=== PATIENT | female | born 1930 | race Caucasian/White ===

== ENCOUNTER 2016-08-03 19:20 | Emergency (ER) | payer MEDICARE, MEDICAID ==
[2016-08-03 19:20] VITALS: BMI 32.9
[2016-08-03 19:27] VITALS: BP 124/68; PULSE 50; RESP 16; TEMP 97.6; O2SAT 98
--- NOTE | 2016-08-03 19:44 | ED PDOC ---
HPI: Psych/Substance Abuse Time Seen by Provider: 08/03/16 19:32 Chief Complaint (Nursing): Weakness/Neurological Deficit Chief Complaint (Provider): Crying/Refusal to Eat History Per: Patient, Family (daughter) History/Exam Limitations: clinical condition (patient has history of Alzheimer' s Dementia) Onset/Duration Of Symptoms: Days (x1 week) Current Symptoms Are (Timing): Still Present Suicide/Self Injury Attempted (Context): None Involuntary Hold By: None Additional Complaint(s): Renée Snell is an 86 year old female, with a past medical history inclusive of CAD, HTN, hypercholesterolemia, depression and Alzheimer's Dementia, who presents to the ED on 08/03/16, via EMS and accompanied by her daughter, for a psychiatric evaluation. Per daughter, patient has been crying excessively x1 week, stating that she wants to go back to her home country. Patient has also been unable to sleep as well as refusing to eat, prompting ED visit. Upon interview, patient is complaining of some non-localizable diffuse body pain, though she denies headache, chest pain or shortness of breath. History as reported by patient may be unreliable secondary to her baseline mental status. PMD: Colin Holt Past Medical History Reviewed: Historical Data, Nursing Documentation, Vital Signs Vital Signs: Last Vital Signs Temp 97.6 F 08/03/16 19:24 Pulse 50 L 08/03/16 19:24 Resp 16 08/03/16 19:24 BP 124/68 08/03/16 19:24 Pulse Ox 98 08/03/16 19:24 - Medical History PMH: Alzheimer's Disease, Arthritis, CAD, Dementia, Depression, HTN, Hypercholesterolemia, Hypothyroidism (thyroidectomy), Paranoia Denies: Diabetes, Emphysema, Gastritis, Hepatitis, HIV, Chronic Kidney Disease, Seizures, Sexually Transmitted Disease, TIA - Surgical History Surgical History: Cholecystectomy Other surgeries: thyroidectomy - Family History Family History: States: Unknown Family Hx - Living Arrangements Living Arrangements: With Family - Home Medications Home Medications: Ambulatory Orders Medication Instructions Recorded Aspirin [Aspirin Chewable] 81 mg PO DAILY #0 ctb 06/11/15 Atorvastatin [Lipitor] 10 mg PO DAILY #0 tab 06/11/15 Calcium Carbonate/Vitamin D3 1 tab PO DAILY #0 tablet 06/11/15 [Calcium 600-Vit D3 200 Tablet] Ergocalciferol (Vitamin D2) 50,000 unit PO SUN #0 capsule 06/11/15 [Vitamin D2] Esomeprazole Magnesium [Nexium] 40 mg PO DAILY #0 chelly. 06/11/15 FLUoxetine [Prozac] 10 mg PO DAILY #0 cap 06/11/15 Fenofibrate 200 mg PO DAILY #0 06/11/15 Levothyroxine [Synthroid] 125 mcg PO DAILY@0630 #0 tab 06/11/15 Memantine HCl [Namenda Xr] 28 mg PO DAILY #30 cer 06/11/15 Zolpidem [Ambien] 10 mg PO HS #0 tab 06/11/15 Ciprofloxacin [Cipro] 500 mg PO BID 7 Days 08/03/16 - Allergies Allergies/Adverse Reactions: Allergies Allergy/AdvReac Type Severity Reaction Status Date / Time No Known Allergies Allergy Verified 08/03/16 19:24 Review of Systems ROS Statement: Except As Marked, All Systems Reviewed And Found Negative Constitutional: Positive for: Other (diffuse, un-localizable body pain) Psych: Positive for: Depression (crying excessively, unable to sleep, refusing to eat) Physical Exam - Reviewed Nursing Documentation Reviewed: Yes Vital Signs Reviewed: Yes - Physical Exam Appears: Positive for: Non-toxic, No Acute Distress Head Exam: Positive for: ATRAUMATIC, NORMOCEPHALIC Skin: Positive for: Normal Color, Warm, Dry Eye Exam: Positive for: Normal appearance, PERRL ENT: Positive for: Normal ENT Inspection. Negative for: Pharyngeal Erythema, Tonsillar Exudate, Tonsillar Swelling Neck: Positive for: Normal, Painless ROM, Supple Cardiovascular/Chest: Positive for: Regular Rate, Rhythm. Negative for: Murmur Respiratory: Positive for: Normal Breath Sounds. Negative for: Respiratory Distress Gastrointestinal/Abdominal: Positive for: Normal Exam, Soft. Negative for: Tenderness Back: Positive for: Normal Inspection Neurologic/Psych: Positive for: Alert, entry level paralegal II-XII (intact, no pronator drift), Oriented (x1 (to self), baseline per daughter), Motor/Sensory Deficits (4/5 x4 extremities but all (=) in motor/sensation). Negative for: Aphasia, Facial Droop - Laboratory Results Result Diagrams: 08/03/16 20:00 08/03/16 20:00 - ECG ECG: Positive for: Interpreted By Me, Viewed By Me ECG Rhythm: Positive for: Sinus Bradycardia O2 Sat by Pulse Oximetry: 98 (RA) Pulse Ox Interpretation: Normal Medical Decision Making Medical Decision Makin:32 Initial Impression: depressive state vs electrolyte imbalance vs UTI Initial Plan: * EKG * CXR * Labs * Troponin I * PTT * PT * Urinalysis * IV NS 1000ml at 100mls/hr * Reevaluation EKG shows sinus bradycardia with nonspecific T-wave abnormalities and a low QRS voltage, unchanged from prior. Patient has a history of sinus bradycardia secondary to possible hypothyroidism. 22:25 Patent has been evaluated by Crisis and does not meet criterion for admission. She is psychiatrically stable for discharge home with a diagnosis of Depression as per Dr. Davis (Psychiatrist environment friendly landscape designer). Outpatient followup instructions given by Nutrition Partner. Pending Urinalysis. Scribe Attestation: Documented by Dionne Flynn, acting as a scribe for Francisco Kimbrough MD. Provider Scribe Attestation: All medical record entries made by the Scribe were at my direction and personally dictated by me. I have reviewed the chart and agree that the record accurately reflects my personal performance of the history, physical exam, medical decision making, and the department course for this patient. I have also personally directed, reviewed, and agree with the discharge instructions and disposition. Disposition - Clinical Impression Clinical Impression: Depression, UTI (urinary tract infection) - Disposition Referrals: Colin Holt MD [Staff Provider] - Disposition: Routine/Home Disposition Time: 23:09 Condition: STABLE Prescriptions: Ciprofloxacin [Cipro] 500 mg PO BID 7 Days Instructions: Urinary Tract Infection in Women (DC), Depression (ED) Print Language: UPPER SORBIAN
[2016-08-03] MEDS ORDERED: Sodium Chloride 0.9% 1,000 ML IV SCH (19:45)
[2016-08-03 20:08] LABS: BASO % 0.5 % (0.0-2.0); EOS # 0.1 K/uL (0.0-0.7); EOS % 2.2 % (0.0-4.0); HEMATOCRIT 36.6 % (34.0-47.0); LYMPH # 2.1 K/uL (1.0-4.3); LYMPH % 42.4 % (20.0-40.0); MEAN CELL VOLUME 89.2 fl (81.0-99.0); MEAN CORPUSCULAR HEMOGLOBIN 28.7 pg (27.0-31.0); MEAN CORPUSCULAR HGB CONC 32.1 g/dL (33.0-37.0); MEAN PLATELET VOLUME 9.7 fl (7.2-11.7); MONO # 0.3 K/uL (0.0-0.8); MONO % 6.8 % (0.0-10.0); NEUT # 2.3 K/uL (1.8-7.0); NEUT % 48.1 % (50.0-75.0); NRBC % 0.1 % (0.0-0.0); RED CELL DISTRIBUTION WIDTH 16.8 % (11.5-14.5); WHITE BLOOD COUNT 4.9 K/uL (4.8-10.8)
[2016-08-03 20:16] LABS: BLOOD UREA NITROGEN 18 mg/dl (7-17); CALCIUM 8.8 mg/dL (8.4-10.2); CARBON DIOXIDE 29 mmol/L (22-30); CHLORIDE 102 mmol/L (98-107); GFR AFRICAN-AMERICAN 52; GLUCOSE,RANDOM 88 mg/dL (65-105); POTASSIUM 4.1 MMOL/L (3.6-5.0); SODIUM 145 mmol/l (132-148)
[2016-08-03 20:25] LABS: PARTIAL THROMBOPLASTIN TIME 27.4 SECONDS (23.3-32.5)
[2016-08-03 22:52] LABS: RBC URINE 1 /hpf (0-3); URINE BACTERIA MANY (<OCC); URINE BILIRUBIN NEGATIVE (NEGATIVE); URINE BLOOD NEGATIVE (NEGATIVE); URINE COLOR STRAW (YELLOW); URINE GLUCOSE (UA) NEG (Normal); URINE KETONE NEGATIVE (NEGATIVE); URINE LEUKOCYTE ESTERASE TRACE Leu/uL (Negative); URINE PROTEIN NEGATIVE (NEGATIVE); URINE UROBILINOGEN 0.2-1.0 mg/dL (0.2-1.0); WBC URINE 7 /hpf (0-5)
--- NOTE | 2016-08-04 13:55 | RAD ---
PROCEDURE: CHEST RADIOGRAPH, 1 VIEW HISTORY: body pains, weakness COMPARISON: 06/09/2015 FINDINGS: LUNGS: Clear. PLEURA: No pneumothorax or pleural fluid seen. CARDIOVASCULAR: No radiographic findings to suggest acute or significant cardiovascular disease. OSSEOUS STRUCTURES: No significant abnormalities. VISUALIZED UPPER ABDOMEN: Normal. OTHER FINDINGS: None. IMPRESSION: No active disease. No acute/significant interval changes.
--- NOTE | 2016-08-04 21:29 | CARD ---
APPROVED REPORT EKG Measurement Heart [id number] <Conclusion> Sinus bradycardia with 1st degree AV block Right superior axis deviation Low voltage QRS Nonspecific T wave abnormality Abnormal ECG
== END 2016-08-03 23:42 | disposition home or self-care (01) ==
LOC: H.ER 19:20
DX: F32.9 Major depressive disorder, single episode, unspecified (principal); N39.0 Urinary tract infection, site not specified; E03.9 Hypothyroidism, unspecified; E78.00 Pure hypercholesterolemia, unspecified; F02.80 Dementia in other diseases classified elsewhere, unspecified severity, without behavioral disturbance, psychotic disturbance, mood disturbance, and anxiety; G30.9 Alzheimer's disease, unspecified; I10 Essential (primary) hypertension; Z79.82 Long term (current) use of aspirin
CPT/HCPCS: 71010; 80048; 81003; 82948; 84484; 85025; 85610; 85730; 93005; 99284; J7040

== ENCOUNTER 2018-01-17 17:39 | Observation (INO) | payer MEDICARE, MEDICAID ==
[2018-01-17 17:39] VITALS: BMI 32.9
[2018-01-17 18:41] LABS: BASO % 0.4 % (0.0-2.0); EOS # 0.1 K/uL (0.0-0.7); EOS % 1.5 % (0.0-4.0); HEMOGLOBIN 12.7 g/dL (12.0-16.0); LYMPH # 1.3 K/uL (1.0-4.3); LYMPH % 19.3 % (20.0-40.0); MEAN CELL VOLUME 90.4 fl (81.0-99.0); MEAN CORPUSCULAR HEMOGLOBIN 29.8 pg (27.0-31.0); MEAN PLATELET VOLUME 9.3 fl (7.2-11.7); MONO # 0.6 K/uL (0.0-0.8); NEUT # 4.9 K/uL (1.8-7.0); NEUT % 70.8 % (50.0-75.0); RBC 4.25 Mil/uL (3.80-5.20); WHITE BLOOD COUNT 6.9 K/uL (4.8-10.8)
--- NOTE | 2018-01-17 18:52 | ED PDOC ---
Syncope/Near Syncope/Dizziness Time Seen by Provider: 01/17/18 17:57 Chief Complaint (Nursing): Syncope Chief Complaint (Provider): Syncope History Per: Patient History/Exam Limitations: no limitations Onset/Duration Of Symptoms: Mins Current Symptoms Are (Timing): Still Present Additional Complaint(s): 87 y/o female with a PMHx of HTN and Alzheimer's Disease, accompanied by daughter, brought in by EMS for evaluation of dizziness and an episode of falling at home. According to the daughter, the patient complained of feeling dizzy and immediately fell after getting up, hitting the left side of her face. It is unclear if patient lost consciousness. Otherwise, patient reports of no complaints. Denies nausea, vomiting, shortness of breath, chest pain and leg swelling. PMD: Colin Holt Medications: Amlodipine and Donepezil Past Medical History Reviewed: Historical Data, Nursing Documentation, Vital Signs Vital Signs: Last Vital Signs Temp 97.4 F L 01/17/18 17:46 Pulse 61 01/17/18 17:46 Resp 22 01/17/18 17:46 BP 154/79 H 01/17/18 17:46 Pulse Ox 99 01/17/18 17:46 - Medical History PMH: Alzheimer's Disease, Arthritis, CAD, Dementia, Depression, HTN, Hypercholesterolemia, Hypothyroidism (thyroidectomy), Paranoia Denies: Diabetes, Emphysema, Gastritis, Hepatitis, HIV, Chronic Kidney Disease, Seizures, Sexually Transmitted Disease, TIA - Surgical History Surgical History: Cholecystectomy - Family History Family History: States: Unknown Family Hx - Living Arrangements Living Arrangements: With Family (daughter) - Home Medications Home Medications: Ambulatory Orders Medication Instructions Recorded Esomeprazole Magnesium [Nexium] 40 mg PO DAILY #0 06/11/15 Fenofibrate 200 mg PO DAILY #0 06/11/15 Levothyroxine [Synthroid] 125 mcg PO DAILY@0630 #0 tab 06/11/15 Zolpidem [Ambien] 10 mg PO HS #0 tab 06/11/15 - Allergies Allergies/Adverse Reactions: Allergies Allergy/AdvReac Type Severity Reaction Status Date / Time No Known Allergies Allergy Verified 01/17/18 17:46 Review of Systems ROS Statement: Except As Marked, All Systems Reviewed And Found Negative Constitutional: Positive for: Other (Fall) Cardiovascular: Negative for: Chest Pain Respiratory: Negative for: Shortness of Breath Gastrointestinal: Negative for: Nausea, Vomiting Musculoskeletal: Positive for: Other (Head Injury). Negative for: Leg Pain (swelling) Neurological: Positive for: Dizziness Physical Exam - Reviewed Nursing Documentation Reviewed: Yes Vital Signs Reviewed: Yes - Physical Exam Appears: Positive for: No Acute Distress Head Exam: Negative for: NORMAL INSPECTION (Mild bruising over the left eyebrow and left zygoma) Eye Exam: Positive for: Normal appearance, EOMI, PERRL Neck: Positive for: Normal (No tenderness to palpation of the spine), Painless ROM Cardiovascular/Chest: Positive for: Regular Rate, Rhythm. Negative for: Murmur Respiratory: Positive for: Normal Breath Sounds. Negative for: Respiratory Distress Gastrointestinal/Abdominal: Positive for: Normal Exam, Soft. Negative for: Tenderness Extremity: Positive for: Normal ROM. Negative for: Deformity, Swelling Neurologic/Psych: Positive for: Alert, Oriented - Laboratory Results Result Diagrams: 01/17/18 18:38 01/17/18 18:38 - ECG O2 Sat by Pulse Oximetry: 99 (RA) Pulse Ox Interpretation: Normal Medical Decision Making Medical Decision Making: Time: 1837 A/P: 87 y/o presenting with syncope workup -- EKG, CXR ordered. -- Rule Out Intercranial pathology -- CT brain and CT C-Spine ordered -- Labs Sent -- Type and Screen -- VBG -- CT Cervical Spine w/o Contrast -- CT Head w/o Contrast -- EKG -- BNP -- CMP -- Troponin I -- CBC with differentials -- CXR Portable -- Glucose, POC Routine -- Urinalysis CXR RESULTS FINDINGS: LUNGS: No active pulmonary disease. PLEURA: No significant pleural effusion identified, no pneumothorax apparent. CARDIOVASCULAR: Atherosclerotic aortic calcifications. Cardiomediastinal silhouette stably enlarged. OSSEOUS STRUCTURES: Unchanged. VISUALIZED UPPER ABDOMEN: Right upper quadrant surgical clips. OTHER FINDINGS: Large hiatal hernia redemonstrated. IMPRESSION: No active disease. Time: 2047 -- Brain CT and Cervical Spine results were unremarkable. Labs showed no clinically significant abnormalities. Based on age, risk factors and syncopal episode at home, patient to be admitted under hospitalist for observation. Scribe Attestation: Documented by Cat Cooper acting as a scribe for Lizz Bianchi MD. Provider Scribe Attestation: All medical record entries made by the Scribe were at my direction and personally dictated by me. I have reviewed the chart and agree that the record accurately reflects my personal performance of the history, physical exam, medical decision making, and the department course for this patient. I have also personally directed, reviewed, and agree with the discharge instructions and disposition. Disposition - Clinical Impression Clinical Impression: Syncope and collapse - Disposition Disposition Time: 20:45 Condition: GUARDED
--- NOTE | 2018-01-17 18:56 | RAD ---
Date of service: 01/17/2018 HISTORY: possible admission COMPARISON: Chest radiograph dated 08/03/2016. FINDINGS: LUNGS: No active pulmonary disease. PLEURA: No significant pleural effusion identified, no pneumothorax apparent. CARDIOVASCULAR: Atherosclerotic aortic calcifications. Cardiomediastinal silhouette stably enlarged. OSSEOUS STRUCTURES: Unchanged. VISUALIZED UPPER ABDOMEN: Right upper quadrant surgical clips. OTHER FINDINGS: Large hiatal hernia redemonstrated. IMPRESSION: No active disease.
[2018-01-17 19:01] LABS: ALB/GLOB RATIO 1.2 (1.0-2.1); ALBUMIN 4.5 g/dL (3.5-5.0); ALT/SGPT 44 U/L (9-52); AST/SGOT 52 U/L (14-36); BLOOD UREA NITROGEN 18 mg/dl (7-17); GFR NON-AFRICAN AMERICAN 59
[2018-01-17 19:13] LABS: B-TYPE NATRIURETIC PEPTIDE 245 pg/ml (0-900)
[2018-01-17 19:15] LABS: VENOUS BLOOD GAS BASE EXCESS -0.4 mmol/L (0.0-2.0); VENOUS BLOOD GAS PCO2 59 mmHg (40-60); VENOUS BLOOD GAS PO2 21 mm/Hg (30-55); VENOUS BLOOD PH 7.28 (7.32-7.43)
[2018-01-17 20:58] LABS: SQUAMOUS EPITHIAL 2 /hpf (0-5); URINE BILIRUBIN NEGATIVE (NEGATIVE); URINE BLOOD NEGATIVE (NEGATIVE); URINE CLARITY CLEAR (Clear); URINE COLOR STRAW (YELLOW); URINE GLUCOSE (UA) NEG (Normal); URINE HYALINE CAST 0-2 /hpf (0-2); URINE LEUKOCYTE ESTERASE NEG Leu/uL (Negative); URINE PROTEIN 30 mg/dL (NEGATIVE); URINE UROBILINOGEN 0.2-1.0 mg/dL (0.2-1.0)
--- NOTE | 2018-01-17 21:48 | CP.PCM.HP ---
Addendum entered and electronically signed by Art Samaniego MD 01/17/18 23:34: I saw and examined this patient and formulated the plan below with Dr. Rosas. Briefly, this 87 y/o female with HTN, hypothyroid, and dementia was admitted with a possible syncopal episode and fall. She is being admitted for evaluation of syncope. CT and EKG as well as labs thus far are unrevealing. Patient has been stable. Original Note: History of Present Illness - History of Present Illness History of Present Illness: CC: dizziness and fall HPI: 87 y/o woman w/ pmh of HTN, hypothyroidism, and dementia present to the ED w/ dizziness and fall. Patient is accompanied by daughter who witnessed patient's episode of dizziness and fall. Patient was eating a meal w/ daughter and upon getting up became dizzy and fell before daughter could reach her. Patient hit the left side of her head on the floor and also injured lip. Patient reports that she was lightheaded and the room was not spinning. The patient denied LOC, palpitations, chest pain, dyspnea, or headache prior to event. The daughter denies witnessing convulsion or urinary/bowel incontinence. The patient had 1 episode of small vomit upon arriving to the ED. The patient denies previous episodes in the past but patient has had previous mechanical fall. The patient reports feeling better and the daughter reports improvement. The patient denies headaches, chest pain, SOB, abdominal pain, nausea, vomiting, diarrhea, dysuria, or fever. ED course: vitals: 97.5 F, 63 beats/min, 121/72 mm Hg, resp 16, O2 99% room air CBC: 6.9>12.7/38.4<184 CMP: 141/4.3, 104/29, 18/0.9, glucose 120, AST 52, ALT 44, alk phos 57 troponin: <0.0120 pro-BNP: 245 VBG: pO2 21, pH 7.28, pCO2 59, HCO3 22.9, lactate 1.1 UA: pending CXR: no active disease CT head: (preliminary) no acute findings CT cervical spine: (preliminary) no acute findings PMD: Dr. Holt PMH: HTN, hypothyroidism, and dementia meds: as per [facility] ([address] [place] [address]) donepezil 5 mg PO daily, celebrex 200 mg PO daily, synthroid 125 mcg Po daily, ambien 10 mg PO HS PSH: thyroidectomy, cholecystectomy Fam: non-contributory SOC: denies smoking, alcohol, and drugs ROS: 12 points assessed and negative unless otherwise reported in HPI Present on Admission - Present on Admission Any Indicators Present on Admission: No History of DVT/PE: No History of Uncontrolled Diabetes: No Urinary Catheter: No Decubitus Ulcer Present: No Review of Systems - Review of Systems All systems: reviewed and no additional remarkable complaints except - Constitutional Constitutional: absent: Chills, Fever, Frequent Falls, Headache - EENT Eyes: absent: Change in Vision - Cardiovascular Cardiovascular: absent: Chest Pain, Palpitations - Respiratory Respiratory: absent: Dyspnea - Gastrointestinal Gastrointestinal: absent: Abdominal Pain, Diarrhea, Nausea, Vomiting - Genitourinary Genitourinary: absent: Dysuria - Musculoskeletal Musculoskeletal: absent: Numbness - Integumentary Integumentary: absent: Rash - Neurological Neurological: As Per HPI, Dizziness, Syncope. absent: Confusion, Convulsions, Headaches, Vertigo Past Patient History - Infectious Disease Hx of Infectious Diseases: None - Tetanus Immunizations Tetanus Immunization: Unknown - Past Medical History & Family History Past Medical History?: Yes - Past Social History Smoking Status: Never Smoked - CARDIAC Hx Hypercholesterolemia: Yes Hx Hypertension: Yes - PULMONARY Hx Emphysema: No - NEUROLOGICAL Hx Alzheimer's Disease: Yes Hx Dementia: Yes Hx Seizures: No Hx Transient Ischemic Attacks (TIA): No - HEENT Hx HEENT Problems: No - RENAL Hx Chronic Kidney Disease: No - ENDOCRINE/METABOLIC Hx Hypothyroidism: Yes (thyroidectomy) - HEMATOLOGICAL/ONCOLOGICAL Hx Human Immunodeficiency Virus (HIV): No - INTEGUMENTARY Hx Dermatological Problems: No - MUSCULOSKELETAL/RHEUMATOLOGICAL Hx Arthritis: Yes - GASTROINTESTINAL Hx Gastritis: No - GENITOURINARY/GYNECOLOGICAL Hx Sexually Transmitted Disorders: No - PSYCHIATRIC Hx Depression: Yes Hx Paranoia: Yes - SURGICAL HISTORY Hx Cholecystectomy: Yes - ANESTHESIA Hx Anesthesia: Yes Hx Anesthesia Reactions: No Meds Allergies/Adverse Reactions: Allergies Allergy/AdvReac Type Severity Reaction Status Date / Time No Known Allergies Allergy Verified 01/17/18 17:46 Physical Exam - Constitutional Appears: Non-toxic, No Acute Distress - Head Exam Head Exam: ATRAUMATIC, NORMAL INSPECTION, NORMOCEPHALIC - Eye Exam Eye Exam: EOMI, Normal appearance, PERRL Pupil Exam: NORMAL ACCOMODATION, PERRL - ENT Exam ENT Exam: Mucous Membranes Moist - Neck Exam Neck exam: Positive for: Full Rom. Negative for: Tenderness - Respiratory Exam Respiratory Exam: Clear to Auscultation Bilateral. absent: Accessory Muscle Use, Decreased Breath Sounds, Rales, Rhonchi, Wheezes, Respiratory Distress - Cardiovascular Exam Cardiovascular Exam: REGULAR RHYTHM, RRR, +S1, +S2. absent: Tachycardia - GI/Abdominal Exam GI & Abdominal Exam: Normal Bowel Sounds, Soft. absent: Distended, Tenderness - Extremities Exam Extremities exam: Negative for: calf tenderness, pedal edema, tenderness - Neurological Exam Neurological exam: Alert, Oriented x3 - Skin Skin Exam: Dry, Intact, Normal Color, Warm Results - Vital Signs Recent Vital Signs: Last Vital Signs Temp 97.5 F L 01/17/18 19:36 Pulse 63 01/17/18 19:36 Resp 16 01/17/18 19:36 BP 121/72 01/17/18 19:36 Pulse Ox 99 01/17/18 20:49 - Labs Result Diagrams: 01/17/18 18:38 01/17/18 18:38 Labs: Laboratory Results - last 24 hr 01/17/18 01/17/18 01/17/18 18:06 18:35 18:38 WBC RBC Hgb Hct MCV MCH MCHC RDW Plt Count MPV Neut % (Auto) Lymph % (Auto) Benton % (Auto) Eos % (Auto) Baso % (Auto) Neut # (Auto) Lymph # (Auto) Benton # (Auto) Eos # (Auto) Baso # (Auto) pO2 VBG pH VBG pCO2 VBG HCO3 VBG Total CO2 VBG O2 Sat (Calc) VBG Base Excess VBG Potassium Glucose Lactate FiO2 Sodium 141 Potassium 4.3 Chloride 104 Carbon Dioxide 29 Anion Gap 12 BUN 18 H Creatinine 0.9 Est GFR ( Amer) > 60 Est GFR (Non-Af Amer) 59 POC Glucose (mg/dL) 109 Random Glucose 120 H Calcium 9.0 Total Bilirubin 0.4 AST 52 H ALT 44 Alkaline Phosphatase 57 Troponin I < 0.0120 NT-Pro-B Natriuret Pep 245 Total Protein 8.4 H Albumin 4.5 Globulin 3.9 Albumin/Globulin Ratio 1.2 Venous Blood Potassium Blood Type A POSITIVE Antibody Screen Negative BBK History Checked Patient has bt 01/17/18 01/17/18 18:38 18:45 WBC 6.9 RBC 4.25 Hgb 12.7 Hct 38.4 MCV 90.4 MCH 29.8 MCHC 33.0 RDW 15.0 H Plt Count 184 MPV 9.3 Neut % (Auto) 70.8 Lymph % (Auto) 19.3 L Benton % (Auto) 8.0 Eos % (Auto) 1.5 Baso % (Auto) 0.4 Neut # (Auto) 4.9 Lymph # (Auto) 1.3 Benton # (Auto) 0.6 Eos # (Auto) 0.1 Baso # (Auto) 0.0 pO2 21 L VBG pH 7.28 L VBG pCO2 59 VBG HCO3 22.9 VBG Total CO2 29.5 H VBG O2 Sat (Calc) 38.2 L VBG Base Excess -0.4 L VBG Potassium 3.7 Glucose 114 H Lactate 1.1 FiO2 21.0 Sodium 136.0 Potassium Chloride 104.0 Carbon Dioxide Anion Gap BUN Creatinine Est GFR ( Amer) Est GFR (Non-Af Amer) POC Glucose (mg/dL) Random Glucose Calcium Total Bilirubin AST ALT Alkaline Phosphatase Troponin I NT-Pro-B Natriuret Pep Total Protein Albumin Globulin Albumin/Globulin Ratio Venous Blood Potassium 3.7 Blood Type Antibody Screen BBK History Checked Assessment & Plan (1) Syncope Status: Acute (2) Fall at home Status: Acute (3) HTN (hypertension) Status: Chronic (4) Dementia Status: Chronic Priority: Medium (5) Hypothyroidism Status: Chronic Priority: Medium - Assessment and Plan (Free Text) Assessment: 87 y/o woman w/ pmh of HTN, hypothyroidism, and dementia present to the ED w/ dizziness and fall. Plan: Syncope - possibly orthostatic in nature - vital signs stable - CBC: 6.9>12.7/38.4<184 - CMP: 141/4.3, 104/29, 18/0.9, glucose 120, AST 52, ALT 44, alk phos 57 - troponin: <0.0120 - pro-BNP: 245 - UA: pending - CXR: no active disease - CT head: (preliminary) no acute findings - CT cervical spine: (preliminary) no acute findings - f/u CBC, CMP - f/u troponin x2 - f/u repeat EKG - f/u carotid dopplers - f/u orthostatic BP - monitor for acute changes - admit to Tele Fall - s/p lightheadedness possibly due to orthostatic hypotension - fell and struck left side of her head on the floor - CT head: (preliminary) no acute findings - CT cervical spine: (preliminary) no acute findings - no focal deficits - monitor for acute changes Dementia - c/w donepezil 5 mg PO daily HTN - BP stable - pharmacy has no BP medication dispensed - hold BP meds for now - monitor for acute changes Hypothyroid - f/u TSH - c/w synthroid 125 mcg PO daily Prophylactic measures - DVT: lovenox 40 mg SC daily
[2018-01-18 01:24] VITALS: RESP 18
[2018-01-18 05:42] LABS: BASO % 0.3 % (0.0-2.0); EOS # 0.1 K/uL (0.0-0.7); EOS % 1.9 % (0.0-4.0); HEMOGLOBIN 12.6 g/dL (12.0-16.0); LYMPH # 1.9 K/uL (1.0-4.3); MEAN CELL VOLUME 90.3 fl (81.0-99.0); MEAN CORPUSCULAR HGB CONC 33.3 g/dL (33.0-37.0); MEAN PLATELET VOLUME 9.7 fl (7.2-11.7); MONO # 0.7 K/uL (0.0-0.8); MONO % 9.7 % (0.0-10.0); NEUT # 4.2 K/uL (1.8-7.0); NEUT % 60.1 % (50.0-75.0); NRBC % 0.2 % (0.0-0.0); RBC 4.18 Mil/uL (3.80-5.20); RED CELL DISTRIBUTION WIDTH 14.9 % (11.5-14.5)
[2018-01-18 06:21] LABS: ALBUMIN 4.3 g/dL (3.5-5.0); BLOOD UREA NITROGEN 13 mg/dl (7-17); CALCIUM 8.8 mg/dL (8.4-10.2); GFR NON-AFRICAN AMERICAN > 60
[2018-01-18 06:22] LABS: ALB/GLOB RATIO 1.2 (1.0-2.1); ALT/SGPT 33 U/L (9-52); AST/SGOT 34 U/L (14-36)
[2018-01-18] MEDS ORDERED: Levothyroxine 125 MCG TAB PO SCH (06:30)
--- NOTE | 2018-01-18 07:46 | CARD ---
APPROVED REPORT Date of service: 01/17/2018 EKG Measurement Heart [id number] <Conclusion> Sinus rhythm with 1st degree AV block Low voltage QRS Left anterior fascicular block Cannot rule out Anterior infarct, age undetermined Abnormal ECG
--- NOTE | 2018-01-18 07:47 | CARD ---
APPROVED REPORT Date of service: 01/17/2018 EKG Measurement Heart [id number] <Conclusion> Sinus rhythm with 1st degree AV block Low voltage QRS Left anterior fascicular block Cannot rule out Anterior infarct, age undetermined Abnormal ECG
[2018-01-18] MEDS ORDERED: Enoxaparin 40 mg Syringe SC SCH (09:00)
--- NOTE | 2018-01-18 10:22 | CT ---
Date of service: 01/17/2018 PROCEDURE: CT HEAD WITHOUT CONTRAST. HISTORY: syncope with fall COMPARISON: CT head dated 06/09/2015 TECHNIQUE: Axial computed tomography images were obtained through the head/brain without intravenous contrast. Radiation dose: Total exam DLP = 762.3 mGy-cm. This CT exam was performed using one or more of the following dose reduction techniques: Automated exposure control, adjustment of the mA and/or kV according to patient size, and/or use of iterative reconstruction technique. FINDINGS: HEMORRHAGE: No intracranial hemorrhage. BRAIN: No mass effect or edema. Atrophy. Chronic microvascular ischemic changes. VENTRICLES: Mildly prominent. No hydrocephalus. CALVARIUM: Unremarkable. PARANASAL SINUSES: Unremarkable as visualized. No significant inflammatory changes. MASTOID AIR CELLS: Unremarkable as visualized. No inflammatory changes. OTHER FINDINGS: None. IMPRESSION: No acute intracranial pathology. Age-related changes. No significant interval change.
--- NOTE | 2018-01-18 10:24 | CT ---
Date of service: 01/17/2018 PROCEDURE: CT Cervical Spine without contrast HISTORY: syncope with fall COMPARISON: None available. TECHNIQUE: Axial computed tomography images were obtained of the cervical spine without the use of intravenous contrast. Coronal and sagittal reformatted images were created and reviewed. Radiation dose: Total exam DLP = 275.0 mGy-cm. This CT exam was performed using one or more of the following dose reduction techniques: Automated exposure control, adjustment of the mA and/or kV according to patient size, and/or use of iterative reconstruction technique. FINDINGS: VERTEBRAE: No fracture. Normal alignment. No destructive bony lesion. DISCS/SPINAL CANAL/NEURAL FORAMINA: No significant central canal or neural foraminal stenosis. Multilevel disc space narrowing with endplate osteophytic ridging. PARASPINAL SOFT TISSUES: Unremarkable. OTHER FINDINGS: None. IMPRESSION: No acute fracture. Multilevel degenerative changes.
--- NOTE | 2018-01-18 11:05 | US ---
Date of service: 01/17/2018 PROCEDURE: Duplex ultrasound of the carotid and vertebral arteries. HISTORY: syncope COMPARISON: Carotid ultrasound dated 06/10/2015. TECHNIQUE: Grayscale and duplex Doppler evaluation of the cervical carotid and vertebral arteries were performed. The common carotid, carotid bifurcations and cervical ICA and proximal ECA were evaluated. The vertebral arteries were evaluated for gross patency and direction. FINDINGS: RIGHT CAROTID ARTERIES: Common Carotid Artery: Calcific and noncalcific plaque. Maximal flow velocity of 96.2 cm/s. Carotid Bifurcation: Calcific and noncalcific plaque. Internal Carotid Artery:Calcific and noncalcific plaque. Maximal flow velocity of 72.8 cm/s. External Carotid Artery (proximal branches): Calcific and noncalcific plaque. Maximal flow velocity of 97.6 cm/s. ICA/CCA Ratio: 1.4 LEFT CAROTID ARTERIES: Common Carotid Artery: Calcific and noncalcific plaque. Maximal flow velocity of 81.1 cm/s. Carotid Bifurcation: Calcific and noncalcific plaque. Internal Carotid Artery:Calcific and noncalcific plaque. Maximal flow velocity of 71.7 cm/s. External Carotid Artery (proximal branches): Calcific and noncalcific plaque. Maximal flow velocity of 77.4 cm/s. ICA/CCA Ratio: 1.1 VERTEBRAL ARTERIES: Right Vertebral Artery: Patent. Antegrade flow. Left Vertebral Artery: Patent. Antegrade flow. OTHER FINDINGS: None. IMPRESSION: Per NASCET criteria, less than 50 percent stenosis of the internal carotid arteries, bilaterally.
--- NOTE | 2018-01-18 11:08 | CP.PCM.PN ---
Subjective - Date & Time of Evaluation Date of Evaluation: 01/18/18 Time of Evaluation: 08:02 - Subjective Subjective: Patient seen and examined this morning during rounding, daughter at bedside, pt taking breakfast reports feeling better, daughter endorse that she is more better than yesterday. Patient denies dizziness or vertigo at this time, no chest pain, palpitations, nausea, vomiting or sob. Denies W/T/N. Afebrile. VSS. Objective - Vital Signs/Intake and Output Vital Signs (last 24 hours): Temp Pulse Resp BP Pulse Ox 97.6 F 62 18 146/84 98 01/18/18 08:20 01/18/18 09:00 01/18/18 08:20 01/18/18 08:20 01/18/18 08:20 - Medications Medications: Current Medications Donepezil HCl (Aricept) 5 mg PO [facility] Last Admin: 01/17/18 23:27 Dose: 5 mg Enoxaparin Sodium (Lovenox) 40 mg SC DAILY [facility]; Protocol Last Admin: 01/18/18 08:57 Dose: 40 mg Levothyroxine Sodium (Synthroid) 125 mcg PO DAILY@0630 [facility] Last Admin: 01/18/18 08:57 Dose: 125 mcg - Labs Labs: 01/18/18 04:20 01/18/18 04:20 - Constitutional Appears: No Acute Distress - Head Exam Head Exam: NORMAL INSPECTION - Eye Exam Eye Exam: EOMI, PERRL - Respiratory Exam Respiratory Exam: Clear to Ausculation Bilateral. absent: Rales, Wheezes - Cardiovascular Exam Cardiovascular Exam: REGULAR RHYTHM, +S1, +S2 - GI/Abdominal Exam GI & Abdominal Exam: Soft, Normal Bowel Sounds. absent: Distended, Tenderness - Extremities Exam Extremities Exam: absent: Calf Tenderness, Pedal Edema - Neurological Exam Neurological Exam: Alert, Awake (oriented to person and place, strenght and sensation preserved in all four extr) - Skin Skin Exam: Intact, Warm Assessment and Plan - Assessment and Plan (Free Text) Assessment: 87 y/o woman w/ PMH of HTN, hypothyroidism, and dementia present to the ED w/ dizziness and fall. Plan: Near Syncope - Orthostatic vital signs wnl - troponin x2 negative, pending 3rd - CXR: no active disease - CT head: official reported negative for CVA or acute changes - CT cervical spine: (preliminary) no acute findings - carotid doppler normal carotids arteries, less 50% stenosis. - f/u Echo - monitor for acute changes Fall - s/p lightheadedness possibly due to orthostatic hypotension - fell and struck left side of her head on the floor - CT head: negative for no acute findings - CT cervical spine: no acute findings - no focal deficits - monitor for acute changes Dementia - c/w donepezil 5 mg PO daily HTN - BP stable - pharmacy has no BP medication dispensed - hold BP meds for now - monitor for acute changes Hypothyroid - TSH 16.4 - synthroid 125 mcg PO daily (dose confirmed with pharmacy) Prophylactic measures - DVT: lovenox 40 mg SC daily
--- NOTE | 2018-01-18 15:28 | CP.PCM.DIS ---
<Chelsea Smith - Last Filed: 01/18/18 16:44> Provider - Provider Date of Admission: 01/17/18 20:49 Attending physician: Art Samaniego MD Time Spent in preparation of Discharge (in minutes): 30 Diagnosis - Discharge Diagnosis (1) Near syncope Status: Resolved Comment: likely vasovagal reaction (2) Fall at home Status: Acute (3) Hypothyroidism Status: Chronic (4) Dementia Status: Chronic (5) HTN (hypertension) Status: Chronic Hospital Course - Lab Results Lab Results: Most Recent Lab Values WBC 7.0 K/uL (4.8-10.8) 01/18/18 04:20 RBC 4.18 Mil/uL (3.80-5.20) 01/18/18 04:20 Hgb 12.6 g/dL (12.0-16.0) 01/18/18 04:20 Hct 37.8 % (34.0-47.0) 01/18/18 04:20 MCV 90.3 fl (81.0-99.0) 01/18/18 04:20 MCH 30.0 pg (27.0-31.0) 01/18/18 04:20 MCHC 33.3 g/dL (33.0-37.0) 01/18/18 04:20 RDW 14.9 % (11.5-14.5) H 01/18/18 04:20 Plt Count 186 K/uL (130-400) 01/18/18 04:20 MPV 9.7 fl (7.2-11.7) 01/18/18 04:20 Neut % (Auto) 60.1 % (50.0-75.0) 01/18/18 04:20 Lymph % (Auto) 28.0 % (20.0-40.0) 01/18/18 04:20 Logan % (Auto) 9.7 % (0.0-10.0) 01/18/18 04:20 Eos % (Auto) 1.9 % (0.0-4.0) 01/18/18 04:20 Baso % (Auto) 0.3 % (0.0-2.0) 01/18/18 04:20 Neut # (Auto) 4.2 K/uL (1.8-7.0) 01/18/18 04:20 Lymph # (Auto) 1.9 K/uL (1.0-4.3) 01/18/18 04:20 Logan # (Auto) 0.7 K/uL (0.0-0.8) 01/18/18 04:20 Eos # (Auto) 0.1 K/uL (0.0-0.7) 01/18/18 04:20 Baso # (Auto) 0.0 K/uL (0.0-0.2) 01/18/18 04:20 pO2 21 mm/Hg (30-55) L 01/17/18 18:45 VBG pH 7.28 (7.32-7.43) L 01/17/18 18:45 VBG pCO2 59 mmHg (40-60) 01/17/18 18:45 VBG HCO3 22.9 mmol/L 01/17/18 18:45 VBG Total CO2 29.5 mmol/L (22-28) H 01/17/18 18:45 VBG O2 Sat (Calc) 38.2 % (40-65) L 01/17/18 18:45 VBG Base Excess -0.4 mmol/L (0.0-2.0) L 01/17/18 18:45 VBG Potassium 3.7 mmol/L (3.6-5.2) 01/17/18 18:45 Sodium 136.0 mmol/L (132-148) 01/17/18 18:45 Chloride 104.0 mmol/L (98-107) 01/17/18 18:45 Glucose 114 mg/dL (65-105) H 01/17/18 18:45 Lactate 1.1 mmol/L (0.7-2.1) 01/17/18 18:45 FiO2 21.0 % 01/17/18 18:45 Sodium 142 mmol/l (132-148) 01/18/18 04:20 Potassium 4.0 MMOL/L (3.6-5.0) 01/18/18 04:20 Chloride 104 mmol/L (98-107) 01/18/18 04:20 Carbon Dioxide 27 mmol/L (22-30) 01/18/18 04:20 Anion Gap 15 (10-20) 01/18/18 04:20 BUN 13 mg/dl (7-17) 01/18/18 04:20 Creatinine 0.7 mg/dl (0.7-1.2) 01/18/18 04:20 Est GFR ( Amer) > 60 01/18/18 04:20 Est GFR (Non-Af Amer) > 60 01/18/18 04:20 POC Glucose (mg/dL) 109 mg/dL (65-110) 01/17/18 18:06 Random Glucose 101 mg/dL (65-105) 01/18/18 04:20 Calcium 8.8 mg/dL (8.4-10.2) 01/18/18 04:20 Total Bilirubin 0.4 mg/dl (0.2-1.3) 01/18/18 04:20 AST 34 U/L (14-36) 01/18/18 04:20 ALT 33 U/L (9-52) 01/18/18 04:20 Alkaline Phosphatase 53 U/L (38-126) 01/18/18 04:20 Troponin I 0.0140 ng/mL (0.00-0.120) 01/18/18 04:20 NT-Pro-B Natriuret Pep 245 pg/ml (0-900) 01/17/18 18:38 Total Protein 7.9 G/DL (6.3-8.2) 01/18/18 04:20 Albumin 4.3 g/dL (3.5-5.0) 01/18/18 04:20 Globulin 3.6 gm/dL (2.2-3.9) 01/18/18 04:20 Albumin/Globulin Ratio 1.2 (1.0-2.1) 01/18/18 04:20 TSH 3rd Generation 16.40 mIU/ML (0.46-4.68) H 01/18/18 04:20 Venous Blood Potassium 3.7 mmol/L (3.6-5.2) 01/17/18 18:45 Urine Color Straw (YELLOW) 01/17/18 20:19 Urine Clarity Clear (Clear) 01/17/18 20:19 Urine pH 6.0 (5.0-8.0) 01/17/18 20:19 Ur Specific [place] 1.012 (1.003-1.030) 01/17/18 20:19 Urine Protein 30 mg/dL (NEGATIVE) 01/17/18 20:19 Urine Glucose (UA) Neg mg/dL (Normal) 01/17/18 20: Urine Ketones Negative mg/dL (NEGATIVE) 01/17/18 20: Urine Blood Negative (NEGATIVE) 01/17/18 20:19 Urine Nitrate Negative (NEGATIVE) 01/17/18 20:19 Urine Bilirubin Negative (NEGATIVE) 01/17/18 20:19 Urine Urobilinogen 0.2-1.0 mg/dL (0.2-1.0) 01/17/18 20:19 Ur Leukocyte Esterase Neg Julisa/uL (Negative) 01/17/18 20:19 Urine RBC (Auto) 1 /hpf (0-3) 01/17/18 20: Urine Microscopic WBC 2 /hpf (0-5) 01/17/18 20: Ur Squamous Epith Cells 2 /hpf (0-5) 01/17/18 20: Hyaline Casts 0-2 /hpf (0-2) 01/17/18 20:19 Blood Type A POSITIVE 01/17/18 18:35 Antibody Screen Negative 01/17/18 18:35 BBK History Checked Patient has bt 01/17/18 18:35 - Hospital Course Hospital Course: 87 y/o woman w/ pmh of HTN, hypothyroidism, and dementia admitted for evaluati on of near syncope, patient presented to the ED w/ dizziness and s/p fall at home. Patient was eating a meal w/ daughter and upon getting up became dizzy and fell before daughter could reach her. Patient hit the left side of her head on the floor and also injured lip. Patient reports that she was lightheaded and the room was not spinning. The patient denied LOC, palpitations, chest pain, dyspnea, or headache prior to event. The daughter denies seizure or urinary/bowel incontinence. No previous episodes in the past. On admision CXR, Head CT and Cervical spine CT were negative for acute changes. EKG low voltage, first degree AV block, unchanged from previous one. Troponin x3 negative, cbc and CMP wnl. TSH is elevated 16.4, pt in Levothyroxine 125mcg daily confirmed with her pharmacy. Carotids doppler reported as normal. Echo official report pending. Will f/u. BP within normal range. Patient condition improved, no more dizziness during stay, VSS, orthostatic VS wnl. Patient discharged home safetly. Patient with instructions to f/u with PCP in 1 week, and primary Neurology Dr Paredes. Patient needs to f/u with Cardiology for further cardiac evaluation. Home medications resumed. Discharge Exam - Additional Findings Additional findings: see progress note's Physical Exam Discharge Plan - Discharge Medications Prescriptions: Levothyroxine [Synthroid] 125 mcg PO DAILY@0630 30 Days #30 tab - Follow Up Plan Condition: GUARDED Disposition: HOME/ ROUTINE Instructions: Syncope (DC), Fall Prevention (DC) Additional Instructions: f/u with PCP in 1 week ( Dr Holt) f/u with Dr Paredes primary Neurologist Recommended f/u with Cardiology for further cardiac evaluation as outpt Referrals: Colin Holt MD [Staff Provider] - Lavon Paredes MD [Medical Doctor] - <Elenita Smith - Last Filed: 01/18/18 17:47> Provider - Provider Date of Admission: 01/17/18 20:49 Attending physician: Art Samaniego MD Hospital Course - Lab Results Lab Results: Most Recent Lab Values WBC 7.0 K/uL (4.8-10.8) 01/18/18 04:20 RBC 4.18 Mil/uL (3.80-5.20) 01/18/18 04:20 Hgb 12.6 g/dL (12.0-16.0) 01/18/18 04:20 Hct 37.8 % (34.0-47.0) 01/18/18 04:20 MCV 90.3 fl (81.0-99.0) 01/18/18 04:20 MCH 30.0 pg (27.0-31.0) 01/18/18 04:20 MCHC 33.3 g/dL (33.0-37.0) 01/18/18 04:20 RDW 14.9 % (11.5-14.5) H 01/18/18 04:20 Plt Count 186 K/uL (130-400) 01/18/18 04:20 MPV 9.7 fl (7.2-11.7) 01/18/18 04:20 Neut % (Auto) 60.1 % (50.0-75.0) 01/18/18 04:20 Lymph % (Auto) 28.0 % (20.0-40.0) 01/18/18 04:20 Logan % (Auto) 9.7 % (0.0-10.0) 01/18/18 04:20 Eos % (Auto) 1.9 % (0.0-4.0) 01/18/18 04:20 Baso % (Auto) 0.3 % (0.0-2.0) 01/18/18 04:20 Neut # (Auto) 4.2 K/uL (1.8-7.0) 01/18/18 04:20 Lymph # (Auto) 1.9 K/uL (1.0-4.3) 01/18/18 04:20 Logan # (Auto) 0.7 K/uL (0.0-0.8) 01/18/18 04:20 Eos # (Auto) 0.1 K/uL (0.0-0.7) 01/18/18 04:20 Baso # (Auto) 0.0 K/uL (0.0-0.2) 01/18/18 04:20 pO2 21 mm/Hg (30-55) L 01/17/18 18:45 VBG pH 7.28 (7.32-7.43) L 01/17/18 18:45 VBG pCO2 59 mmHg (40-60) 01/17/18 18:45 VBG HCO3 22.9 mmol/L 01/17/18 18:45 VBG Total CO2 29.5 mmol/L (22-28) H 01/17/18 18:45 VBG O2 Sat (Calc) 38.2 % (40-65) L 01/17/18 18:45 VBG Base Excess -0.4 mmol/L (0.0-2.0) L 01/17/18 18:45 VBG Potassium 3.7 mmol/L (3.6-5.2) 01/17/18 18:45 Sodium 136.0 mmol/L (132-148) 01/17/18 18:45 Chloride 104.0 mmol/L (98-107) 01/17/18 18:45 Glucose 114 mg/dL (65-105) H 01/17/18 18:45 Lactate 1.1 mmol/L (0.7-2.1) 01/17/18 18:45 FiO2 21.0 % 01/17/18 18:45 Sodium 142 mmol/l (132-148) 01/18/18 04:20 Potassium 4.0 MMOL/L (3.6-5.0) 01/18/18 04:20 Chloride 104 mmol/L (98-107) 01/18/18 04:20 Carbon Dioxide 27 mmol/L (22-30) 01/18/18 04:20 Anion Gap 15 (10-20) 01/18/18 04:20 BUN 13 mg/dl (7-17) 01/18/18 04:20 Creatinine 0.7 mg/dl (0.7-1.2) 01/18/18 04:20 Est GFR ( Amer) > 60 01/18/18 04:20 Est GFR (Non-Af Amer) > 60 01/18/18 04:20 POC Glucose (mg/dL) 109 mg/dL (65-110) 01/17/18 18:06 Random Glucose 101 mg/dL (65-105) 01/18/18 04:20 Calcium 8.8 mg/dL (8.4-10.2) 01/18/18 04:20 Total Bilirubin 0.4 mg/dl (0.2-1.3) 01/18/18 04:20 AST 34 U/L (14-36) 01/18/18 04:20 ALT 33 U/L (9-52) 01/18/18 04:20 Alkaline Phosphatase 53 U/L (38-126) 01/18/18 04:20 Troponin I 0.0140 ng/mL (0.00-0.120) 01/18/18 04:20 NT-Pro-B Natriuret Pep 245 pg/ml (0-900) 01/17/18 18:38 Total Protein 7.9 G/DL (6.3-8.2) 01/18/18 04:20 Albumin 4.3 g/dL (3.5-5.0) 01/18/18 04:20 Globulin 3.6 gm/dL (2.2-3.9) 01/18/18 04:20 Albumin/Globulin Ratio 1.2 (1.0-2.1) 01/18/18 04:20 TSH 3rd Generation 16.40 mIU/ML (0.46-4.68) H 01/18/18 04:20 Venous Blood Potassium 3.7 mmol/L (3.6-5.2) 01/17/18 18:45 Urine Color Straw (YELLOW) 01/17/18 20:19 Urine Clarity Clear (Clear) 01/17/18 20:19 Urine pH 6.0 (5.0-8.0) 01/17/18 20:19 Ur Specific [place] 1.012 (1.003-1.030) 01/17/18 20:19 Urine Protein 30 mg/dL (NEGATIVE) 01/17/18 20:19 Urine Glucose (UA) Neg mg/dL (Normal) 01/17/18 20: Urine Ketones Negative mg/dL (NEGATIVE) 01/17/18 20:19 Urine Blood Negative (NEGATIVE) 01/17/18 20:19 Urine Nitrate Negative (NEGATIVE) 01/17/18 20:19 Urine Bilirubin Negative (NEGATIVE) 01/17/18 20:19 Urine Urobilinogen 0.2-1.0 mg/dL (0.2-1.0) 01/17/18 20:19 Ur Leukocyte Esterase Neg Julisa/uL (Negative) 01/17/18 20:19 Urine RBC (Auto) 1 /hpf (0-3) 01/17/18 20:19 Urine Microscopic WBC 2 /hpf (0-5) 01/17/18 20:19 Ur Squamous Epith Cells 2 /hpf (0-5) 01/17/18 20:19 Hyaline Casts 0-2 /hpf (0-2) 01/17/18 20:19 Blood Type A POSITIVE 01/17/18 18:35 Antibody Screen Negative 01/17/18 18:35 BBK History Checked Patient has bt 01/17/18 18:35 Attending/Attestation - Attestation I have personally seen and examined this patient.: Yes I have fully participated in the care of the patient.: Yes I have reviewed all pertinent clinical information, including history, physical exam and plan: Yes Notes (Text): Pt will follow up with her own Neurologist Dr Paredes for further Neuro work up. Further Cardiology work up as outpt Discussed this with pt's daughter at bedside
[2018-01-18 16:22] VITALS: BP 112/65; PULSE 60; TEMP 98.5; O2SAT 100
--- NOTE | 2018-01-18 18:00 | CARD ---
APPROVED REPORT Date of service: 01/18/2018 EXAM: Two-dimensional and M-mode echocardiogram with Doppler and color Doppler. Other Information Quality : AverageRhythm : NSR INDICATION Abnormal EKG/Arrhythmia Lightheadedness 2D DIMENSIONS IVSd1.01 (0.7-1.1cm)LVDd4.00 (3.9-5.9cm) LVOT Diameter1.73 (1.8-2.4cm)PWd0.95 (0.7-1.1cm) IVSs1.69 (0.8-1.2cm)LVDs2.03 (2.5-4.0cm) FS (%) 49.3 %PWs1.27 (0.8-1.2cm) M-Mode DIMENSIONS Left Atrium (MM)4.35 (2.5-4.0cm)IVSd1.00 (0.7-1.1cm) Aortic Root2.91 (2.2-3.7cm)LVDd4.26 (4.0-5.6cm) Aortic Cusp Exc.1.71 (1.5-2.0cm)PWd1.12 (0.7-1.1cm) IVSs1.59 cmFS (%) 46 % LVDs2.29 (2.0-3.8cm)PWs1.50 cm Aortic Valve AoV Peak Yqtibccb394.9cm/sAoV VTI38.3cmAO Peak GR.13mmHg LVOT Peak Qgpzeitl055.3cm/sLVOT VTI30.37cmAO Mean GR.7mmHg CARLOS (VMAX)1.75st1IWC (VTI)1.43nd3AM P 1/2 Vxol179yp Mitral Valve MV E Zokxdleb83.3cm/sMV DECEL VEWQ106jbVS A Tydeabui79.8cm/s MV VXP78tbS/A ratio0.7MVA (PHT)3.24cm2 TDI Lateral E' Peak V5.62cm/sMedial E' Peak V3.91cm/sE/Lateral E'11.4 E/Medial E'16.4 Pulmonary Valve PV Peak Fdatioap016.3cm/s Tricuspid Valve TR Peak Vygjnrig353dk/sRAP JEHOEFTK91mjUvRW Peak Gr.18mmHg [id number] LEFT VENTRICLE The left ventricle is normal size. There is normal left ventricular wall thickness. The left ventricular systolic function is normal. The estimated ejection fraction is 70% No regional wall motion abnormalities noted.. Transmitral Doppler flow pattern is Grade I-abnormal relaxation pattern. No left ventricle thrombus noted on this study. There is no ventricular septal defect visualized. There is no left ventricular aneurysm. There is no mass noted in the left ventricle. RIGHT VENTRICLE The right ventricle is normal size. There is normal right ventricular wall thickness. The right ventricular systolic function is normal. ATRIA The left atrium size is mildly dilated The right atrium size is normal. The interatrial septum is intact with no evidence for an atrial septal defect. AORTIC VALVE The aortic valve is normal in structure. Mild aortic regurgitation is present. There is no aortic valvular stenosis. There is no aortic valvular vegetation. MITRAL VALVE The mitral valve is normal in structure. There is no evidence of mitral valve prolapse. There is no mitral valve stenosis. There is mild mitral valve regurgitation noted. TRICUSPID VALVE The tricuspid valve is normal in structure. There is mild tricuspid valve regurgitation noted. PASP within normal limits There is no tricuspid valve prolapse or vegetation. There is no tricuspid valve stenosis. PULMONIC VALVE The pulmonary valve is normal in structure. There is no pulmonic valvular regurgitation. There is no pulmonic valvular stenosis. GREAT VESSELS The aortic root is normal in size. The ascending aorta is normal in size. The pulmonary artery is normal. The IVC is normal in size and collapses >50% with inspiration. PERICARDIAL EFFUSION There is no pericardial effusion. There is no pleural effusion. <Conclusion> Mild aortic insufficiency Mild mitral insufficiency Mild TR with normal PASP Dilated left atrium Normal LV systolic function with doppler hemodynamics consistent with abnormal relaxation The estimated ejection fraction is 60-65%
== END 2018-01-18 16:25 | disposition home or self-care (01) ==
LOC: H.ER 19:08 → H.ERHOLD 20:49 → H.TEL 01-18 00:25
PROVIDERS: ADMIT Internal Medicine; ATTEND Internal Medicine
DX: R55 Syncope and collapse (principal); I10 Essential (primary) hypertension; E03.9 Hypothyroidism, unspecified; F03.90 Unspecified dementia, unspecified severity, without behavioral disturbance, psychotic disturbance, mood disturbance, and anxiety; Z91.81 History of falling
CPT/HCPCS: 36415; 70450; 71045; 72125; 80053; 81003; 82803; 82948; 83880; 84443; 84484; 85025; 86850; 86900; 93005; 93306; 93880; 96372; 96374; 96375; 99285; G0378; J1630; J1650; J2060

== ENCOUNTER 2018-04-03 13:18 | Inpatient (IN) | payer MEDICARE, MEDICAID ==
[2018-04-03 13:18] VITALS: BMI 32.9
[2018-04-03] MEDS ORDERED: Sterile Water 10 ML IV ONE (13:42)
--- NOTE | 2018-04-03 13:46 | ED PDOC ---
HPI: Psych/Substance Abuse Time Seen by Provider: 04/03/18 13:23 Chief Complaint (Nursing): Psychiatric Evaluation History Per: Family Onset/Duration Of Symptoms: Unknown Current Symptoms Are (Timing): Still Present Suicide/Self Injury Attempted (Context): None Modifying Factor(s): None Severity: Moderate Associated Symptoms: Anger, Agitation Additional Complaint(s): Brought by family for evaluation of worsening aggressive behavior. Punching and scratching family memebers. Past Medical History - Medical History PMH: Alzheimer's Disease, Arthritis, CAD, Dementia, Depression, HTN, Hypercholesterolemia, Hypothyroidism (thyroidectomy), Paranoia Denies: Diabetes, Emphysema, Gastritis, Hepatitis, HIV, Chronic Kidney Disease, Seizures, Sexually Transmitted Disease, TIA - Surgical History Surgical History: Cholecystectomy - Family History Family History: States: Unknown Family Hx - Home Medications Home Medications: Ambulatory Orders Medication Instructions Recorded Esomeprazole Magnesium [Nexium] 40 mg PO DAILY #0 capsule. 06/11/15 Fenofibrate 200 mg PO DAILY #0 06/11/15 Zolpidem [Ambien] 10 mg PO HS #0 tab 06/11/15 Levothyroxine [Synthroid] 125 mcg PO DAILY@0630 30 Days #30 01/18/18 tab - Allergies Allergies/Adverse Reactions: Allergies Allergy/AdvReac Type Severity Reaction Status Date / Time No Known Allergies Allergy Verified 01/17/18 17:46 Review of Systems Review Of Systems: ROS cannot be obtained secondary to pt's inabilty to answer questions. Physical Exam - Reviewed Nursing Documentation Reviewed: Yes Vital Signs Reviewed: Yes - Physical Exam Appears: Positive for: Non-toxic, No Acute Distress Head Exam: Positive for: ATRAUMATIC, NORMAL INSPECTION, NORMOCEPHALIC Skin: Positive for: Normal Color, Warm, DRY Eye Exam: Positive for: EOMI, Normal appearance, PERRL ENT: Positive for: Normal ENT Inspection Neck: Positive for: Normal, Painless ROM Cardiovascular/Chest: Positive for: Regular Rate, Rhythm Respiratory: Positive for: CNT, Normal Breath Sounds Gastrointestinal/Abdominal: Positive for: Normal Exam, Soft Back: Positive for: Normal Inspection Extremity: Positive for: Normal ROM Neurologic/Psych: Positive for: Alert, Oriented (x1). Negative for: Motor/Sensory Deficits - Laboratory Results Result Diagrams: 04/03/18 16:23 04/03/18 16:23 Disposition - Clinical Impression Clinical Impression: Dementia, Dehydration - Patient ED Disposition Is Patient to be Admitted: Yes - Disposition Disposition Time: 16:49 Condition: FAIR Forms: [facility] (Pashto) - Pt Status Changed To: Hospital Disposition Of: Observation - POA Present On Arrival: None
[2018-04-03 16:28] LABS: BASO # 0.1 K/uL (0.0-0.2); BASO % 0.7 % (0.0-2.0); EOS % 0.7 % (0.0-4.0); HEMOGLOBIN 13.2 g/dL (12.0-16.0); LYMPH # 1.4 K/uL (1.0-4.3); LYMPH % 20.8 % (20.0-40.0); MEAN CELL VOLUME 89.2 fl (81.0-99.0); MEAN CORPUSCULAR HEMOGLOBIN 29.7 pg (27.0-31.0); MEAN CORPUSCULAR HGB CONC 33.3 g/dL (33.0-37.0); MEAN PLATELET VOLUME 9.2 fl (7.2-11.7); MONO # 0.5 K/uL (0.0-0.8); MONO % 7.6 % (0.0-10.0); NEUT # 4.7 K/uL (1.8-7.0); NEUT % 70.2 % (50.0-75.0); NRBC % 0.1 % (0.0-0.0); RBC 4.43 Mil/uL (3.80-5.20); RED CELL DISTRIBUTION WIDTH 12.7 % (11.5-14.5); WHITE BLOOD COUNT 6.7 K/uL (4.8-10.8)
[2018-04-03 16:40] LABS: ALB/GLOB RATIO 1.1 (1.0-2.1); ALBUMIN 4.8 g/dL (3.5-5.0); ALT/SGPT 37 U/L (9-52); AST/SGOT 45 U/L (14-36); BLOOD UREA NITROGEN 39 mg/dl (7-17); CALCIUM 9.1 mg/dL (8.4-10.2); GFR NON-AFRICAN AMERICAN 36
[2018-04-03] MEDS ORDERED: Sodium Chloride 0.9% 1,000 ML IV STA (16:42)
--- NOTE | 2018-04-03 17:25 | CP.PCM.HP ---
<Susana Pickett - Last Filed: 04/03/18 17:19> History of Present Illness - History of Present Illness History of Present Illness: 88 y/o female w/ pmhx of HTN and Alzheimer's who was brought to ED by daughter after becoming aggressive at home for the past 5 days. Daughter also reports that patient has not eaten since yesterday. Denies n/v/d/c. History obtained from medical records and daughter, and patient is limited historian. PMD: Dr. Thacker Pmhx: HTN, Alzheimer's, Thyroid cancer Surghx: thyroidectomy, "veins surgery," and cholecystectomy Socialhx: denies tobacco, etoh, recreational drug use Famhx: non contributory Allergies: NKDA HomeRx: Donepezil Hcl 10mg PO QD, Amlodipine 5mg PO QD, Levothyroxine 125 mcg QD, Memanatine 25 mg PO QD, Pentoprazole 40mg PO BID, Ibersartan-HCTZ 300-12.5 mg PO QD Code Status: Full Code Next of Kin: Adrian Millan, daughter, Present on Admission - Present on Admission Any Indicators Present on Admission: No History of DVT/PE: No History of Uncontrolled Diabetes: No Urinary Catheter: No Decubitus Ulcer Present: No Review of Systems - Review of Systems Systems not reviewed;Unavailable: Dementia - Constitutional Constitutional: absent: Anorexia, Lethargy - EENT Eyes: absent: Blurred Vision - Cardiovascular Cardiovascular: absent: Chest Pain - Respiratory Respiratory: absent: Dyspnea - Gastrointestinal Gastrointestinal: absent: Abdominal Pain, Constipation, Diarrhea, Nausea, Vomiting - Genitourinary Genitourinary: absent: Difficulty Urinating, Dysuria - Neurological Neurological: Behavioral Changes, Confusion Past Patient History - Infectious Disease Hx of Infectious Diseases: None - Tetanus Immunizations Tetanus Immunization: Unknown - Past Medical History & Family History Past Medical History?: Yes - Past Social History Smoking Status: Never Smoked Alcohol: None Drugs: Denies Home Situation {Lives}: With Family - CARDIAC Hx Hypercholesterolemia: Yes Hx Hypertension: Yes - PULMONARY Hx Emphysema: No - NEUROLOGICAL Hx Alzheimer's Disease: Yes Hx Dementia: Yes Hx Seizures: No Hx Transient Ischemic Attacks (TIA): No - HEENT Hx HEENT Problems: No - RENAL Hx Chronic Kidney Disease: No - ENDOCRINE/METABOLIC Hx Hypothyroidism: Yes (thyroidectomy) - HEMATOLOGICAL/ONCOLOGICAL Hx Human Immunodeficiency Virus (HIV): No - INTEGUMENTARY Hx Dermatological Problems: No - MUSCULOSKELETAL/RHEUMATOLOGICAL Hx Arthritis: Yes - GASTROINTESTINAL Hx Gastritis: No - GENITOURINARY/GYNECOLOGICAL Hx Sexually Transmitted Disorders: No - PSYCHIATRIC Hx Depression: Yes Hx Paranoia: Yes - SURGICAL HISTORY Hx Cholecystectomy: Yes - ANESTHESIA Hx Anesthesia: Yes Hx Anesthesia Reactions: No Meds Allergies/Adverse Reactions: Allergies Allergy/AdvReac Type Severity Reaction Status Date / Time No Known Allergies Allergy Verified 01/17/18 17:46 Physical Exam - Constitutional Appears: No Acute Distress - Head Exam Head Exam: ATRAUMATIC - ENT Exam ENT Exam: Mucous Membranes Dry - Respiratory Exam Respiratory Exam: Clear to Auscultation Bilateral, NORMAL BREATHING PATTERN. absent: Rhonchi, Wheezes - Cardiovascular Exam Cardiovascular Exam: REGULAR RHYTHM, +S1, +S2 - GI/Abdominal Exam GI & Abdominal Exam: Normal Bowel Sounds, Soft. absent: Tenderness - Extremities Exam Extremities exam: Negative for: calf tenderness, pedal edema, tenderness - Neurological Exam Neurological exam: Altered - Psychiatric Exam Psychiatric exam: Normal Affect - Skin Skin Exam: Dry Results - Vital Signs Recent Vital Signs: Last Vital Signs Temp 98 F 04/03/18 14:36 Pulse 76 04/03/18 14:36 Resp 18 04/03/18 14:36 BP 102/58 L 04/03/18 14:36 Pulse Ox 96 04/03/18 14:36 - Labs Result Diagrams: 04/03/18 16:23 04/03/18 16:23 Labs: Laboratory Results - last 24 hr 04/03/18 04/03/18 16:23 16:23 WBC 6.7 RBC 4.43 Hgb 13.2 Hct 39.6 MCV 89.2 MCH 29.7 MCHC 33.3 RDW 12.7 Plt Count 180 MPV 9.2 Neut % (Auto) 70.2 Lymph % (Auto) 20.8 [place] % (Auto) 7.6 Eos % (Auto) 0.7 Baso % (Auto) 0.7 Neut # (Auto) 4.7 Lymph # (Auto) 1.4 [place] # (Auto) 0.5 Eos # (Auto) 0.0 Baso # (Auto) 0.1 Sodium 143 Potassium 3.9 Chloride 99 Carbon Dioxide 29 Anion Gap 19 BUN 39 H Creatinine 1.4 H Est GFR ( Amer) 43 Est GFR (Non-Af Amer) 36 Random Glucose 100 Calcium 9.1 Total Bilirubin 0.6 AST 45 H D ALT 37 Alkaline Phosphatase 65 Total Protein 9.1 H Albumin 4.8 Globulin 4.3 H Albumin/Globulin Ratio 1.1 Alcohol, Quantitative < 10 Assessment & Plan - Assessment and Plan (Free Text) Assessment: 88 y/o female w/ pmhx of HTN and Alzheimer's admitted to [facility] due to dehydration and KRISTOPHER. Acute Kidney Injury Possibly secondary to dehydration Admit to med surg IV fluid hydration w/ NaCl- 1L @ 125mL/hr Altered mental Status w/ Hx of Alzheimer's Cont. home meds; Donepezil Hcl 10mg PO QD, Memanatine 25mg PO QD Plans for eric-psych once patient is stabilized Hx of Hypothyroidism hx of Thyroid Cancer s/p thyroidectomy Levothyroxine 125 mcg QD PO F/u TSH Hx of HTN Cont. Ibersartan-HCTZ 300-12.5mg PO QD, amlodipine 5mg PO QD Diet Heart healthy DVT Prophylaxis Heprain 5000 units SC Q12 F/u coags Code: Full Code <MattiShe Dietz - Last Filed: 04/05/18 10:30> Results - Vital Signs Recent Vital Signs: Last Vital Signs Temp 97.7 F 04/05/18 09:00 Pulse 62 04/05/18 09:00 Resp 18 04/05/18 09:00 BP 137/82 04/05/18 09:00 Pulse Ox 99 04/05/18 09:00 - Labs Result Diagrams: 04/03/18 16:23 04/04/18 15:02 Labs: Laboratory Results - last 24 hr 04/04/18 15:02 Sodium 139 Potassium 3.8 Chloride 101 Carbon Dioxide 28 Anion Gap 14 BUN 17 Creatinine 0.8 Est GFR ( Amer) > 60 Est GFR (Non-Af Amer) > 60 Random Glucose 122 H Calcium 8.3 L Attending/Attestation - Attestation I have personally seen and examined this patient.: Yes I have fully participated in the care of the patient.: Yes I have reviewed all pertinent clinical information: Yes Notes (Text): 04/05/18 10:29 Agree with findings and plan as above.
[2018-04-03] MEDS ORDERED: Sodium Chloride 0.9% 1,000 ML IV SCH (17:30)
[2018-04-03] MEDS ORDERED: Povidone Iodine Oint 10% Foilpak UD ONE (17:36)
[2018-04-03 18:15] LABS: SQUAMOUS EPITHIAL < 1 /hpf (0-5); URINE BILIRUBIN NEGATIVE (NEGATIVE); URINE BLOOD NEGATIVE (NEGATIVE); URINE CLARITY SLIGHTY-CLOUDY (Clear); URINE COLOR YELLOW (YELLOW); URINE GLUCOSE (UA) NEG (NEGATIVE); URINE LEUKOCYTE ESTERASE NEG Leu/uL (Negative); URINE PROTEIN 30 mg/dL (NEGATIVE); URINE UROBILINOGEN 0.2-1.0 mg/dL (0.2-1.0)
[2018-04-03 18:22] LABS: INR 1.2; PROTHROMBIN TIME 13.1 Seconds (9.8-13.1)
[2018-04-03 18:25] LABS: PARTIAL THROMBOPLASTIN TIME 27.4 Seconds (25.6-37.1)
[2018-04-03 18:38] LABS: BARBITURATES, UR NEGATIVE (NEGATIVE); BENZODIAZEPINES, UR NEGATIVE (NEGATIVE); OPIATES, UR NEGATIVE (NEGATIVE); PHENCYCLIDINE, UR NEGATIVE (NEGATIVE)
--- NOTE | 2018-04-03 18:48 | RAD ---
Date of service: 04/03/2018 HISTORY: Cough COMPARISON: 01/17/2018. FINDINGS: LUNGS: No active pulmonary disease. PLEURA: No significant pleural effusion identified, no pneumothorax apparent. CARDIOVASCULAR: Atherosclerotic calcifications identified primarily aortic arch. No radiographic findings to suggest acute or significant cardiovascular disease. OSSEOUS STRUCTURES: No significant abnormalities. VISUALIZED UPPER ABDOMEN: Normal. OTHER FINDINGS: None. IMPRESSION: No active disease. No significant interval change compared to the prior examination(s).
[2018-04-03] MEDS: Sodium Chloride 0.9% 1,000 ML IV SCH (21:58)
--- NOTE | 2018-04-04 06:27 | CARD ---
APPROVED REPORT Date of service: 04/03/2018 EKG Measurement Heart [id number] <Conclusion> Sinus rhythm with 1st degree AV block Left axis deviation Nonspecific T wave abnormality Abnormal ECG
[2018-04-04] MEDS: Levothyroxine 125 MCG TAB PO SCH (07:30)
[2018-04-04] MEDS: Pantoprazole 40 mg EC Tab PO SCH ×2 (09:23→17:46)
[2018-04-04] MEDS: Donepezil HCl 10 MG ODT PO SCH (10:22)
--- NOTE | 2018-04-04 10:39 | CP.PCM.CON ---
History of Present Illness - History of Present Illness History of Present Illness: Psychiatry consult CC: Behavioral disturbances HPI: 88 y/o female w/ pmhx of HTN and Alzheimer's who was brought to ED by daughter after becoming aggressive at home for the past 5 days. Daughter also reports that patient has not eaten since the day before admission. Patient is calm, pleasant. She is only oriented to self, does not know date or location. She does know why she is in the hospital and can not provide any relevant i nformation. She denies depression/anxiety/AH/VH/paranoia/delusions/SI/HI. PMD: Dr. Thacker Pmhx: HTN, Alzheimer's, Thyroid cancer Surghx: thyroidectomy, "veins surgery," and cholecystectomy Socialhx: denies tobacco, etoh, recreational drug use Famhx: non contributory Allergies: NKDA HomeRx: Donepezil Hcl 10mg PO QD, Amlodipine 5mg PO QD, Levothyroxine 125 mcg QD, Memanatine 25 mg PO QD, Pentoprazole 40mg PO BID, Ibersartan-HCTZ 300-12.5 mg PO QD Impression: 88 yo female w/ h/o Alzheimer's dementia presents w/ worsening behavioral issues. -Recommend to start Depakote 125 mg PO BID if patient's family is agreeable -Patient can not consent for psychiatric admission; family will need medical power of mailing section clerk if they believe patient needs psychiatric admission -Patient does not have capacity to make medical decisions Past Patient History - Infectious Disease Hx of Infectious Diseases: None - Tetanus Immunizations Tetanus Immunization: Unknown - Past Medical History & Family History Past Medical History?: Yes - Past Social History Smoking Status: Light Smoker < 10 Cigarettes Daily - CARDIAC Hx Cardiac Disorders: Yes Hx Hypertension: Yes - PULMONARY Hx Respiratory Disorders: No Hx Emphysema: No - NEUROLOGICAL Hx Neurological Disorder: Yes Hx Alzheimer's Disease: Yes Hx Dementia: Yes - HEENT Hx HEENT Problems: No - RENAL Hx Chronic Kidney Disease: No - ENDOCRINE/METABOLIC Hx Endocrine Disorders: Yes - HEMATOLOGICAL/ONCOLOGICAL Hx Cancer: Yes (THyroid) Hx Human Immunodeficiency Virus (HIV): No - INTEGUMENTARY Hx Dermatological Problems: No - MUSCULOSKELETAL/RHEUMATOLOGICAL Hx Musculoskeletal Disorders: Yes Hx Falls: No - GASTROINTESTINAL Hx Gastritis: No - GENITOURINARY/GYNECOLOGICAL Hx Sexually Transmitted Disorders: No - PSYCHIATRIC Hx Psychophysiologic Disorder: Yes Hx Depression: Yes Hx Paranoia: Yes Hx Substance Use: No - SURGICAL HISTORY Hx Surgeries: Yes Hx Cholecystectomy: Yes Hx Thyroidectomy: Yes - ANESTHESIA Hx Anesthesia: Yes Hx Anesthesia Reactions: No Hx Malignant Hyperthermia: No Has any member of the family had a problem w/ anesthesia?: No Meds Allergies/Adverse Reactions: Allergies Allergy/AdvReac Type Severity Reaction Status Date / Time No Known Allergies Allergy Verified 01/17/18 17:46 - Medications Medications: Current Medications Amlodipine Besylate (Norvasc) 5 mg PO DAILY [facility] Last Admin: 04/04/18 09:22 Dose: 5 mg Donepezil HCl (Aricept Odt) 10 mg PO DAILY [facility] Last Admin: 04/04/18 10:22 Dose: 10 mg Heparin Sodium (Porcine) (Heparin) 5,000 units SC Q12 [facility]; Protocol Last Admin: 04/04/18 09:29 Dose: 5,000 units Hydrochlorothiazide (Microzide) 12.5 mg PO DAILY [facility] Last Admin: 04/04/18 09:22 Dose: 12.5 mg Sodium Chloride (Sodium Chloride 0.9%) 1,000 mls @ 125 mls/hr IV .Q8H [facility] Stop: 04/04/18 17:24 Last Admin: 04/03/18 21:58 Dose: 125 mls/hr Levothyroxine Sodium (Synthroid) 125 mcg PO DAILY@0630 [facility] Losartan Potassium (Cozaar) 100 mg PO DAILY [facility] Last Admin: 04/04/18 09:21 Dose: 100 mg Memantine (Namenda) 10 mg PO BID [facility] Last Admin: 04/04/18 09:22 Dose: 10 mg Pantoprazole Sodium (Protonix Ec Tab) 40 mg PO BID [facility] Last Admin: 04/04/18 09:23 Dose: 40 mg Results - Vital Signs Recent Vital Signs: Last Vital Signs Temp 97.8 F 04/04/18 08:25 Pulse 65 04/04/18 09:22 Resp 20 04/04/18 08:25 BP 143/83 04/04/18 09:22 Pulse Ox 99 04/04/18 08:25 - Labs Result Diagrams: 04/03/18 16:23 04/03/18 16:23 Labs: Laboratory Results - last 24 hr 04/03/18 04/03/18 04/03/18 16:23 16:23 18:03 WBC 6.7 RBC 4.43 Hgb 13.2 Hct 39.6 MCV 89.2 MCH 29.7 MCHC 33.3 RDW 12.7 Plt Count 180 MPV 9.2 Neut % (Auto) 70.2 Lymph % (Auto) 20.8 [place] % (Auto) 7.6 Eos % (Auto) 0.7 Baso % (Auto) 0.7 Neut # (Auto) 4.7 Lymph # (Auto) 1.4 [place] # (Auto) 0.5 Eos # (Auto) 0.0 Baso # (Auto) 0.1 PT INR APTT Sodium 143 Potassium 3.9 Chloride 99 Carbon Dioxide 29 Anion Gap 19 BUN 39 H Creatinine 1.4 H Est GFR ( Amer) 43 Est GFR (Non-Af Amer) 36 Random Glucose 100 Calcium 9.1 Total Bilirubin 0.6 AST 45 H D ALT 37 Alkaline Phosphatase 65 Total Protein 9.1 H Albumin 4.8 Globulin 4.3 H Albumin/Globulin Ratio 1.1 Free T4 TSH 3rd Generation Urine Color Urine Clarity Urine pH Ur Specific [place] Urine Protein Urine Glucose (UA) Urine Ketones Urine Blood Urine Nitrate Urine Bilirubin Urine Urobilinogen Ur Leukocyte Esterase Urine RBC (Auto) Urine Microscopic WBC Ur Squamous Epith Cells Hyaline Casts Urine Opiates Screen Negative Urine Methadone Screen Negative Ur Barbiturates Screen Negative Ur Phencyclidine Scrn Negative Ur Amphetamines Screen Negative U Benzodiazepines Scrn Negative U Oth Cocaine Metabols Negative U Cannabinoids Screen Negative Alcohol, Quantitative < 10 04/03/18 04/03/18 04/03/18 18:03 18:03 18:24 WBC RBC Hgb Hct MCV MCH MCHC RDW Plt Count MPV Neut % (Auto) Lymph % (Auto) [place] % (Auto) Eos % (Auto) Baso % (Auto) Neut # (Auto) Lymph # (Auto) [place] # (Auto) Eos # (Auto) Baso # (Auto) PT 13.1 INR 1.2 APTT 27.4 Sodium Potassium Chloride Carbon Dioxide Anion Gap BUN Creatinine Est GFR ( Amer) Est GFR (Non-Af Amer) Random Glucose Calcium Total Bilirubin AST ALT Alkaline Phosphatase Total Protein Albumin Globulin Albumin/Globulin Ratio Free T4 2.02 TSH 3rd Generation Urine Color Yellow Urine Clarity Slighty-cloudy Urine pH 6.0 Ur Specific [place] 1.019 Urine Protein 30 Urine Glucose (UA) Neg Urine Ketones Negative Urine Blood Negative Urine Nitrate Negative Urine Bilirubin Negative Urine Urobilinogen 0.2-1.0 Ur Leukocyte Esterase Neg Urine RBC (Auto) 2 Urine Microscopic WBC 2 Ur Squamous Epith Cells < 1 Hyaline Casts 11-20 H Urine Opiates Screen Urine Methadone Screen Ur Barbiturates Screen Ur Phencyclidine Scrn Ur Amphetamines Screen U Benzodiazepines Scrn U Oth Cocaine Metabols U Cannabinoids Screen Alcohol, Quantitative 04/03/18 18:24 WBC RBC Hgb Hct MCV MCH MCHC RDW Plt Count MPV Neut % (Auto) Lymph % (Auto) [place] % (Auto) Eos % (Auto) Baso % (Auto) Neut # (Auto) Lymph # (Auto) [place] # (Auto) Eos # (Auto) Baso # (Auto) PT INR APTT Sodium Potassium Chloride Carbon Dioxide Anion Gap BUN Creatinine Est GFR ( Amer) Est GFR (Non-Af Amer) Random Glucose Calcium Total Bilirubin AST ALT Alkaline Phosphatase Total Protein Albumin Globulin Albumin/Globulin Ratio Free T4 TSH 3rd Generation 1.05 Urine Color Urine Clarity Urine pH Ur Specific [place] Urine Protein Urine Glucose (UA) Urine Ketones Urine Blood Urine Nitrate Urine Bilirubin Urine Urobilinogen Ur Leukocyte Esterase Urine RBC (Auto) Urine Microscopic WBC Ur Squamous Epith Cells Hyaline Casts Urine Opiates Screen Urine Methadone Screen Ur Barbiturates Screen Ur Phencyclidine Scrn Ur Amphetamines Screen U Benzodiazepines Scrn U Oth Cocaine Metabols U Cannabinoids Screen Alcohol, Quantitative
--- NOTE | 2018-04-04 12:28 | CP.PCM.PN ---
Subjective - Date & Time of Evaluation Date of Evaluation: 04/04/18 Time of Evaluation: 08:25 - Subjective Subjective: Patient seen and examined at bedside. Alert, oriented to self, but not time or place. Nurse reports that patient pulled out IV overnight and was pacing around. She is pleasant and cooperative upon examination. Denies abdominal pain, n/v/headache/dizziness. Objective - Vital Signs/Intake and Output Vital Signs (last 24 hours): Temp Pulse Resp BP Pulse Ox 97.8 F 65 20 143/83 99 04/04/18 08:25 04/04/18 09:22 04/04/18 08:25 04/04/18 09:22 04/04/18 08:25 - Medications Medications: Current Medications Amlodipine Besylate (Norvasc) 5 mg PO DAILY [facility] Last Admin: 04/04/18 09:22 Dose: 5 mg Donepezil HCl (Aricept Odt) 10 mg PO DAILY [facility] Last Admin: 04/04/18 10:22 Dose: 10 mg Heparin Sodium (Porcine) (Heparin) 5,000 units SC Q12 [facility]; Protocol Last Admin: 04/04/18 09:29 Dose: 5,000 units Hydrochlorothiazide (Microzide) 12.5 mg PO DAILY [facility] Last Admin: 04/04/18 09:22 Dose: 12.5 mg Sodium Chloride (Sodium Chloride 0.9%) 1,000 mls @ 125 mls/hr IV .Q8H [facility] Stop: 04/04/18 17:24 Last Admin: 04/03/18 21:58 Dose: 125 mls/hr Levothyroxine Sodium (Synthroid) 125 mcg PO DAILY@0630 [facility] Losartan Potassium (Cozaar) 100 mg PO DAILY [facility] Last Admin: 04/04/18 09:21 Dose: 100 mg Memantine (Namenda) 10 mg PO BID [facility] Last Admin: 04/04/18 09:22 Dose: 10 mg Pantoprazole Sodium (Protonix Ec Tab) 40 mg PO BID [facility] Last Admin: 04/04/18 09:23 Dose: 40 mg - Labs Labs: 04/03/18 16:23 04/03/18 16:23 PT 13.1 Seconds (9.8-13.1) 04/03/18 18:03 INR 1.2 04/03/18 18:03 APTT 27.4 Seconds (25.6-37.1) 04/03/18 18:03 - Constitutional Appears: Confused - ENT Exam ENT Exam: Mucous Membranes Moist - Respiratory Exam Respiratory Exam: Clear to Ausculation Bilateral, NORMAL BREATHING PATTERN - Cardiovascular Exam Cardiovascular Exam: REGULAR RHYTHM, +S1, +S2 - Neurological Exam Neurological Exam: Alert. absent: Oriented x3 - Skin Skin Exam: Dry, Warm Assessment and Plan - Assessment and Plan (Free Text) Assessment: Assessment: 88 y/o female w/ pmhx of HTN and Alzheimer's admitted [facility] due to dehydration and KRISTOPHER for IV fluid hydration. Plans for psych admission pending family attains medical POA. Acute Kidney Injury Possibly secondary to dehydration s/p IV fluid hydration w/ NaCl- 1L @ 125mL/hr patient pulled out IV. Encourage increased PO intake Dementia w/ Behavioral Disturbance Hx of Alzheimer's Cont. home meds; Donepezil Hcl 10mg PO QD, Memanatine 25mg PO QD Psych following, appreciate recs: Patient does not have capacity to make medical decisions; patient can not consent for psychiatric admission. Family will need medical POA for psych admission. Depakote 125 mg PO BID if patient's family is agreeable. Hx of Hypothyroidism hx of Thyroid Cancer s/p thyroidectomy Levothyroxine 125 mcg QD PO TSH and T4 wnl Hx of HTN Cont. Ibersartan-HCTZ 300-12.5mg PO QD, amlodipine 5mg PO QD Diet Heart healthy DVT Prophylaxis Heprain 5000 units SC Q12 Code: Full Code
[2018-04-04 15:52] LABS: BLOOD UREA NITROGEN 17 mg/dl (7-17); CALCIUM 8.3 mg/dL (8.4-10.2); GFR NON-AFRICAN AMERICAN > 60
[2018-04-04] MEDS: Divalproex 125 mg DR (BID formulation) PO SCH (16:36)
[2018-04-04] MEDS: Sodium Chloride 0.9% 1,000 ML IV SCH (16:37)
[2018-04-05] MEDS ORDERED: Sodium Chloride 0.9% 1,000 ML IV SCH (01:00)
[2018-04-05] MEDS: Levothyroxine 125 MCG TAB PO SCH (05:50)
[2018-04-05] MEDS: Divalproex 125 mg DR (BID formulation) PO SCH ×2 (08:23→17:55)
[2018-04-05] MEDS: Donepezil HCl 10 MG ODT PO SCH (08:24)
[2018-04-05] MEDS: Pantoprazole 40 mg EC Tab PO SCH (08:26)
--- NOTE | 2018-04-05 14:49 | CP.PCM.PN ---
Subjective - Date & Time of Evaluation Date of Evaluation: 04/05/18 Time of Evaluation: 08:05 - Subjective Subjective: Patient seen and examined at bedside. Nurse reports episode of agitation and aggression over night. Pleasant at time of exam and cooperative. Patient remains confused, oriented only to self. She is seen eating breakfast and tolerating PO Objective - Vital Signs/Intake and Output Vital Signs (last 24 hours): Temp Pulse Resp BP Pulse Ox 97.7 F 62 18 137/82 99 04/05/18 09:00 04/05/18 09:00 04/05/18 09:00 04/05/18 09:00 04/05/18 09:00 - Medications Medications: Current Medications Acetaminophen (Tylenol 325mg Tab) 650 mg PO Q6 PRN PRN Reason: Headache Last Admin: 04/04/18 20:42 Dose: 650 mg Amlodipine Besylate (Norvasc) 5 mg PO DAILY [facility] Last Admin: 04/05/18 08:26 Dose: 5 mg Divalproex Sodium (Depakote Dr(*Bid*)) 125 mg PO BID [facility] Last Admin: 04/05/18 08:23 Dose: 125 mg Docusate Sodium (Colace) 100 mg PO DAILY [facility] Last Admin: 04/05/18 13:51 Dose: 100 mg Donepezil HCl (Aricept Odt) 10 mg PO DAILY [facility] Last Admin: 04/05/18 08:24 Dose: 10 mg Heparin Sodium (Porcine) (Heparin) 5,000 units SC Q12 [facility]; Protocol Last Admin: 04/05/18 08:25 Dose: 5,000 units Hydrochlorothiazide (Microzide) 12.5 mg PO DAILY [facility] Last Admin: 04/05/18 08:26 Dose: 12.5 mg Sodium Chloride (Sodium Chloride 0.9%) 1,000 mls @ 125 mls/hr IV .Q8H [facility] Stop: 04/06/18 00:56 Last Admin: 04/05/18 01:31 Dose: 125 mls/hr Levothyroxine Sodium (Synthroid) 125 mcg PO DAILY@0630 [facility] Last Admin: 04/05/18 05:50 Dose: Not Given Losartan Potassium (Cozaar) 100 mg PO DAILY [facility] Last Admin: 04/05/18 08:25 Dose: 100 mg Memantine (Namenda) 10 mg PO BID [facility] Last Admin: 04/05/18 08:26 Dose: 10 mg Pantoprazole Sodium (Protonix Ec Tab) 40 mg PO BID [facility] Last Admin: 04/05/18 08:26 Dose: 40 mg Risperidone (Risperdal Oral Soln) 0.25 mg PO Q12 PRN PRN Reason: Agitation - Labs Labs: 04/03/18 16:23 04/04/18 15:02 PT 13.1 Seconds (9.8-13.1) 04/03/18 18:03 INR 1.2 04/03/18 18:03 APTT 27.4 Seconds (25.6-37.1) 04/03/18 18:03 Assessment and Plan - Assessment and Plan (Free Text) Assessment: Assessment: 88 y/o female w/ pmhx of HTN and Alzheimer's admitted to [facility] due to dehydration and KRISTOPHER for IV fluid hydration. KRISTOPHER resolved w/ hydration. Patient continues to have aggressive episodes. Psych is following. Patient started on Depakote 125mg PO BID Acute Kidney Injury Resolved Possibly secondary to dehydration s/p IV fluid hydration w/ NaCl- 1L @ 125mL/hr Cont. to encourage PO water intake Dementia w/ Behavioral Disturbance Hx of Alzheimer's Cont. home meds; Donepezil Hcl 10mg PO QD, Memanatine 25mg PO QD Psych following, appreciate recs: Patient does not have capacity to make medical decisions; patient can not consent for psychiatric admission. Family will need medical POA for psych admission. Depakote 125 mg PO BID; family is agreeable. Start Respiradone 0.25mg PO Q12 PRN Hx of Hypothyroidism hx of Thyroid Cancer s/p thyroidectomy Levothyroxine 125 mcg QD PO TSH and T4 wnl Hx of HTN Cont. Ibersartan-HCTZ 300-12.5mg PO QD, amlodipine 5mg PO QD Diet Heart healthy DVT Prophylaxis Heprain 5000 units SC Q12 Code: Full Code
[2018-04-06] MEDS: Levothyroxine 125 MCG TAB PO SCH (06:55)
[2018-04-06] MEDS: Divalproex 125 mg DR (BID formulation) PO SCH ×2 (08:10→10:38)
[2018-04-06] MEDS: Pantoprazole 40 mg EC Tab PO SCH ×3 (08:10→16:22)
[2018-04-06] MEDS: Donepezil HCl 10 MG ODT PO SCH ×2 (08:11→10:38)
--- NOTE | 2018-04-06 14:48 | CP.PCM.PN ---
Subjective - Date & Time of Evaluation Date of Evaluation: 04/06/18 Time of Evaluation: 08:40 - Subjective Subjective: Patient seen at bedside. Not cooperative w/ interview/exam this morning, refusing to eat breakfast. Refusing PO meds. Patient is paranoid and says "leave before I make you". Nurse reports patient becoming physically aggressive and refusing to be accompanied and helped in restroom. Objective - Vital Signs/Intake and Output Vital Signs (last 24 hours): Temp Pulse Resp BP Pulse Ox 97.4 F L 56 L 20 135/67 97 04/05/18 16:37 04/05/18 16:37 04/05/18 16:37 04/05/18 16:37 04/05/18 16:37 - Medications Medications: Current Medications Acetaminophen (Tylenol 325mg Tab) 650 mg PO Q6 PRN PRN Reason: Headache Last Admin: 04/04/18 20:42 Dose: 650 mg Amlodipine Besylate (Norvasc) 5 mg PO DAILY [facility] Last Admin: 04/06/18 10:39 Dose: Not Given Divalproex Sodium (Depakote Dr(*Bid*)) 250 mg PO BID [facility] Docusate Sodium (Colace) 100 mg PO DAILY [facility] Last Admin: 04/06/18 10:38 Dose: Not Given Donepezil HCl (Aricept Odt) 10 mg PO DAILY [facility] Last Admin: 04/06/18 10:38 Dose: Not Given Haloperidol (Haldol) 0.5 mg PO Q6 PRN PRN Reason: Agitation Haloperidol Lactate (Haldol) 0.5 mg IM Q6 PRN PRN Reason: Agitation Heparin Sodium (Porcine) (Heparin) 5,000 units SC Q12 [facility]; Protocol Last Admin: 04/06/18 10:38 Dose: Not Given Hydrochlorothiazide (Microzide) 12.5 mg PO DAILY [facility] Last Admin: 04/06/18 10:38 Dose: Not Given Levothyroxine Sodium (Synthroid) 125 mcg PO DAILY@0630 [facility] Last Admin: 04/06/18 06:55 Dose: Not Given Losartan Potassium (Cozaar) 100 mg PO DAILY [facility] Last Admin: 04/06/18 10:38 Dose: Not Given Memantine (Namenda) 10 mg PO BID [facility] Last Admin: 04/06/18 10:38 Dose: Not Given Pantoprazole Sodium (Protonix Ec Tab) 40 mg PO BID [facility] Last Admin: 04/06/18 10:39 Dose: Not Given Risperidone (Risperidone Odt 0.25mg) 0.25 mg PO BID [facility] - Labs Labs: 04/03/18 16:23 04/04/18 15:02 PT 13.1 Seconds (9.8-13.1) 04/03/18 18:03 INR 1.2 04/03/18 18:03 APTT 27.4 Seconds (25.6-37.1) 04/03/18 18:03 - Constitutional Appears: Confused - Neurological Exam Neurological Exam: Altered. absent: Oriented x3 - Psychiatric Exam Psychiatric exam: Agitated Additional comments: Uncooperative w/ exam Assessment and Plan - Assessment and Plan (Free Text) Assessment: 88 y/o female w/ pmhx of HTN and Alzheimer's [facility] due to dehydration and KRISTOPHER for IV fluid hydration. KRISTOPHER resolved w/ hydration. Patient continues to have aggressive episodes. Psych is following; Patient does not have capacity to make medical decisions; patient can not consent for psychiatric admission. Family will need medical POA for psych admission. Patient started on Depakote 250mg PO BID, Haldol 0.5mg PO Q6 PRN/ Haldol 0.5mg IM Q6 PRN (patient refusing PO at times), and Risperidone 0.25mg PO BID. Plan: Dementia w/ Behavioral Disturbance Hx of Alzheimer's Cont. home meds; Donepezil Hcl 10mg PO QD, Memanatine 25mg PO QD Psych following, appreciate recs: Patient does not have capacity to make medical decisions; patient can not consent for psychiatric admission. Family will need medical POA for psych admission. Discussed case w/ Dr. Wallace; plans to increase Depakote 125 mg PO BID to 250mg PO BID. Added Haldol 0.5mg PO Q6 PRN. / Haldol 0.5mg IM Q6 PRN (patient refusing PO at times). Risperidone 0.25mg PO BID Hx of Hypothyroidism hx of Thyroid Cancer s/p thyroidectomy Levothyroxine 125 mcg QD PO TSH and T4 wnl Hx of HTN Cont. Ibersartan-HCTZ 300-12.5mg PO QD, amlodipine 5mg PO QD Diet Heart healthy DVT Prophylaxis Heprain 5000 units SC Q12 Code: Full Code
[2018-04-06] MEDS: RISPERIDONE 0.25 MG ODT PO SCH (16:22)
[2018-04-06] MEDS ORDERED: RISPERIDONE 0.25 MG ODT PO SCH (17:00)
[2018-04-06] MEDS: Divalproex 250 mg DR(BID formulation) PO SCH (17:52)
[2018-04-07] MEDS: Haloperidol Lactate 2 mg/ml Liquid PO PRN ×2 (00:25→21:14)
[2018-04-07] MEDS: Levothyroxine 125 MCG TAB PO SCH (05:42)
[2018-04-07] MEDS: Divalproex 250 mg DR(BID formulation) PO SCH ×2 (08:53→10:00)
[2018-04-07] MEDS: Donepezil HCl 10 MG ODT PO SCH ×2 (08:53→10:01)
[2018-04-07] MEDS: Pantoprazole 40 mg EC Tab PO SCH ×4 (08:56→16:16)
[2018-04-07] MEDS: RISPERIDONE 0.25 MG ODT PO SCH ×2 (08:56→10:00)
--- NOTE | 2018-04-07 09:17 | CP.PCM.CON ---
History of Present Illness - History of Present Illness History of Present Illness: Psychiatry consult CC: Behavioral disturbances HPI: 88 y/o female w/ pmhx of HTN and Alzheimer's who was brought to ED by daughter for worsening aggression at home. Patient intermittently refuses medications. Patient is calm, pleasant w/ rewriter. She is oriented to self and "hospital." Patient's behavior seems to be worse at night, which could be late day confusion ("sun-downing"). Patient is currently eating her lunch and denies acute paranoia about her food. She does not know why she is in the hospital and can not provide any relevant information. She denies depression/anxiety/AH/VH/paranoia/delusions/SI/HI. PMD: Dr. Thacker Pmhx: HTN, Alzheimer's, Thyroid cancer Surghx: thyroidectomy, "veins surgery," and cholecystectomy Socialhx: denies tobacco, etoh, recreational drug use Famhx: non contributory Allergies: NKDA Impression: 88 yo female w/ h/o Alzheimer's dementia presents w/ behavioral issues. Patient currently calm and cooperative w/ rewriter, observed eating quietly w/o acute psychiatric complaints. -Patient can be discharged to home under the care of her family w/ 24 hr care; patient unable to care for herself due to cognitive impairments -Change timing of Risperdal 0.5 mg to 5 pm as patient seems to have late day confusion -Continue Depakote 250 mg PO BID; can give Depakote sprinkles or tablets; recommend to check VPA level; can keep current dosage if level <100 -Recommend outpatient psychiatric follow-up upon discharge Past Patient History - Infectious Disease Hx of Infectious Diseases: None - Tetanus Immunizations Tetanus Immunization: Unknown - Past Medical History & Family History Past Medical History?: Yes - Past Social History Smoking Status: Light Smoker < 10 Cigarettes Daily - CARDIAC Hx Cardiac Disorders: Yes Hx Hypertension: Yes - PULMONARY Hx Respiratory Disorders: No Hx Emphysema: No - NEUROLOGICAL Hx Neurological Disorder: Yes Hx Alzheimer's Disease: Yes Hx Dementia: Yes - HEENT Hx HEENT Problems: No - RENAL Hx Chronic Kidney Disease: No - ENDOCRINE/METABOLIC Hx Endocrine Disorders: Yes - HEMATOLOGICAL/ONCOLOGICAL Hx Cancer: Yes (THyroid) Hx Human Immunodeficiency Virus (HIV): No - INTEGUMENTARY Hx Dermatological Problems: No - MUSCULOSKELETAL/RHEUMATOLOGICAL Hx Musculoskeletal Disorders: Yes Hx Falls: No - GASTROINTESTINAL Hx Gastritis: No - GENITOURINARY/GYNECOLOGICAL Hx Sexually Transmitted Disorders: No - PSYCHIATRIC Hx Psychophysiologic Disorder: Yes Hx Depression: Yes Hx Paranoia: Yes Hx Substance Use: No - SURGICAL HISTORY Hx Surgeries: Yes Hx Cholecystectomy: Yes Hx Thyroidectomy: Yes - ANESTHESIA Hx Anesthesia: Yes Hx Anesthesia Reactions: No Hx Malignant Hyperthermia: No Has any member of the family had a problem w/ anesthesia?: No Meds Allergies/Adverse Reactions: Allergies Allergy/AdvReac Type Severity Reaction Status Date / Time No Known Allergies Allergy Verified 01/17/18 17:46 - Medications Medications: Current Medications Acetaminophen (Tylenol 325mg Tab) 650 mg PO Q6 PRN PRN Reason: Headache Last Admin: 04/04/18 20:42 Dose: 650 mg Amlodipine Besylate (Norvasc) 5 mg PO DAILY [facility] Last Admin: 04/07/18 08:56 Dose: Not Given Divalproex Sodium (Depakote Dr(*Bid*)) 250 mg PO BID [facility] Last Admin: 04/07/18 08:53 Dose: Not Given Docusate Sodium (Colace) 100 mg PO DAILY [facility] Last Admin: 04/07/18 08:53 Dose: Not Given Donepezil HCl (Aricept Odt) 10 mg PO DAILY [facility] Last Admin: 04/07/18 08:53 Dose: Not Given Haloperidol Lactate (Haldol) 0.5 mg IM Q6 PRN PRN Reason: Agitation Last Admin: 04/07/18 06:58 Dose: 0.5 mg Haloperidol Lactate (Haldol) 0.5 mg PO Q6 PRN PRN Reason: Agitation Last Admin: 04/07/18 00:25 Dose: 0.5 mg Heparin Sodium (Porcine) (Heparin) 5,000 units SC Q12 [facility]; Protocol Last Admin: 04/07/18 08:53 Dose: Not Given Hydrochlorothiazide (Microzide) 12.5 mg PO DAILY [facility] Last Admin: 04/07/18 08:56 Dose: Not Given Levothyroxine Sodium (Synthroid) 125 mcg PO DAILY@0630 [facility] Last Admin: 04/07/18 05:42 Dose: Not Given Losartan Potassium (Cozaar) 100 mg PO DAILY [facility] Last Admin: 04/07/18 08:53 Dose: Not Given Memantine (Namenda) 10 mg PO BID [facility] Last Admin: 04/07/18 08:56 Dose: Not Given Pantoprazole Sodium (Protonix Ec Tab) 40 mg PO BID [facility] Last Admin: 04/07/18 08:56 Dose: Not Given Risperidone (Risperidone Odt 0.25mg) 0.25 mg PO BID [facility] Last Admin: 04/07/18 08:56 Dose: Not Given Results - Vital Signs Recent Vital Signs: Last Vital Signs Temp 98.1 F 04/06/18 16:16 Pulse 52 L 04/06/18 16:16 Resp 20 04/06/18 16:16 BP 132/73 04/06/18 16:16 Pulse Ox 97 04/06/18 16:16 - Labs Result Diagrams: 04/03/18 16:23 04/04/18 15:02
--- NOTE | 2018-04-07 10:43 | CP.PCM.PN ---
Subjective - Date & Time of Evaluation Date of Evaluation: 04/07/18 Time of Evaluation: 09:00 - Subjective Subjective: Patient seen at bedside. Alert, not oriented. Eating breakfast. Refusing PO meds. Nurse reports patient continues to be aggressive towards staff. Agitated over night. Calmed down after IM haladol. Objective - Vital Signs/Intake and Output Vital Signs (last 24 hours): Temp Pulse Resp BP Pulse Ox 98.1 F 52 L 20 132/73 97 04/06/18 16:16 04/06/18 16:16 04/06/18 16:16 04/07/18 10:00 04/06/18 16:16 - Medications Medications: Current Medications Acetaminophen (Tylenol 325mg Tab) 650 mg PO Q6 PRN PRN Reason: Headache Last Admin: 04/04/18 20:42 Dose: 650 mg Amlodipine Besylate (Norvasc) 5 mg PO DAILY [facility] Last Admin: 04/07/18 10:00 Dose: 5 mg Divalproex Sodium (Depakote Dr(*Bid*)) 250 mg PO BID [facility] Last Admin: 04/07/18 10:00 Dose: 250 mg Docusate Sodium (Colace) 100 mg PO DAILY [facility] Last Admin: 04/07/18 08:53 Dose: Not Given Donepezil HCl (Aricept Odt) 10 mg PO DAILY [facility] Last Admin: 04/07/18 10:01 Dose: 10 mg Haloperidol Lactate (Haldol) 0.5 mg IM Q6 PRN PRN Reason: Agitation Last Admin: 04/07/18 06:58 Dose: 0.5 mg Haloperidol Lactate (Haldol) 0.5 mg PO Q6 PRN PRN Reason: Agitation Last Admin: 04/07/18 00:25 Dose: 0.5 mg Heparin Sodium (Porcine) (Heparin) 5,000 units SC Q12 [facility]; Protocol Last Admin: 04/07/18 08:53 Dose: Not Given Hydrochlorothiazide (Microzide) 12.5 mg PO DAILY [facility] Last Admin: 04/07/18 10:01 Dose: 12.5 mg Levothyroxine Sodium (Synthroid) 125 mcg PO DAILY@0630 [facility] Last Admin: 04/07/18 05:42 Dose: Not Given Losartan Potassium (Cozaar) 100 mg PO DAILY [facility] Last Admin: 12/14/18 10:01 Dose: 100 mg Memantine (Namenda) 10 mg PO BID [facility] Last Admin: 04/07/18 10:01 Dose: 10 mg Pantoprazole Sodium (Protonix Ec Tab) 40 mg PO BID [facility] Last Admin: 04/07/18 10:00 Dose: 40 mg Risperidone (Risperidone Odt 0.25mg) 0.25 mg PO BID [facility] Last Admin: 04/07/18 10:00 Dose: 0.25 mg - Labs Labs: 04/03/18 16:23 04/04/18 15:02 PT 13.1 Seconds (9.8-13.1) 04/03/18 18:03 INR 1.2 04/03/18 18:03 APTT 27.4 Seconds (25.6-37.1) 04/03/18 18:03 - Constitutional Appears: No Acute Distress, Confused - Neurological Exam Neurological Exam: Alert, Awake. absent: Oriented x3 - Psychiatric Exam Psychiatric exam: Normal Affect Assessment and Plan - Assessment and Plan (Free Text) Assessment: 88 y/o female w/ pmhx of HTN and Alzheimer's admitted to [facility] due to dehydration and KRISTOPHER for IV fluid hydration. KRISTOPHER resolved w/ hydration. Patient continues to have aggressive episodes. Psych is following; Patient does not have capacity to make medical decisions; patient can not consent for psychiatric admission. Family will need medical POA for psych admission. Patient started on Depakote 250mg PO BID, Haldol 0.5mg PO Q6 PRN/ Haldol 0.5mg IM Q6 PRN (patient refusing PO at times), and Risperidone 0.25mg PO BID. Plan: Dementia w/ Behavioral Disturbance Hx of Alzheimer's Cont. home meds; Donepezil Hcl 10mg PO QD, Memanatine 25mg PO QD Psych following, appreciate recs: Patient does not have capacity to make medical decisions; patient can not consent for psychiatric admission. Family will need medical POA for psych admission. Discussed case w/ Dr. Wallace; plans to increase Depakote 125 mg PO BID to 250mg PO BID. Added Haldol 0.5mg PO Q6 PRN. / Haldol 0.5mg IM Q6 PRN (patient refusing PO at times). Risperidone 0.25mg PO BID Hx of Hypothyroidism hx of Thyroid Cancer s/p thyroidectomy Levothyroxine 125 mcg QD PO TSH and T4 wnl Hx of HTN Cont. Ibersartan-HCTZ 300-12.5mg PO QD, amlodipine 5mg PO QD Diet Heart healthy DVT Prophylaxis Heprain 5000 units SC Q12 Code: Full Code
[2018-04-07] MEDS: Divalproex 125 mg Sprinkle Capsule PO SCH ×2 (14:16→16:07)
[2018-04-07] MEDS ORDERED: Risperidone M tab 0.5MG PO SCH (17:00)
--- NOTE | 2018-04-07 18:44 | CT ---
Date of service: 04/07/2018 PROCEDURE: CT HEAD WITHOUT CONTRAST. HISTORY: dementia with behavior change COMPARISON: 01/17/2018 TECHNIQUE: Axial computed tomography images were obtained through the head/brain without intravenous contrast. Supplemental Coronal and Sagittal projections created and reviewed. Radiation dose: Total exam DLP = 807.87 mGy-cm. This CT exam was performed using one or more of the following dose reduction techniques: Automated exposure control, adjustment of the mA and/or kV according to patient size, and/or use of iterative reconstruction technique. FINDINGS: HEMORRHAGE: No intracranial hemorrhage. BRAIN: No mass effect or edema. Age related senescent changes. VENTRICLES: Unremarkable. No hydrocephalus. CALVARIUM: Unremarkable. PARANASAL SINUSES: Unremarkable as visualized. No significant inflammatory changes. MASTOID AIR CELLS: Unremarkable as visualized. No inflammatory changes. OTHER FINDINGS: None. IMPRESSION: No acute intracranial abnormalities. No significant findings to account for the clinical presentation. No significant interval change compared to the prior examination(s).
[2018-04-08] MEDS: Levothyroxine 125 MCG TAB PO SCH (06:48)
[2018-04-08 08:38] VITALS: RESP 18; TEMP 98.3; O2SAT 96
[2018-04-08] MEDS ORDERED: Lactulose 10 gm/15 ml Syrup PO ONE (09:30)
[2018-04-08] MEDS: Pantoprazole 40 mg EC Tab PO SCH (09:45)
[2018-04-08] MEDS: Divalproex 125 mg Sprinkle Capsule PO SCH (09:47)
[2018-04-08 09:48] VITALS: BP 125/80; PULSE 61
[2018-04-08] MEDS: Donepezil HCl 10 MG ODT PO SCH (09:48)
--- NOTE | 2018-04-08 15:06 | CP.PCM.DIS ---
<Jose De Jesus - Last Filed: 04/08/18 15:00> Provider - Provider Date of Admission: 04/05/18 10:44 Attending physician: She Chino DO Consults: 04/04/18 10:20 Psychiatry Consult Routine Comment: Consulting Provider: Janelle Virgen Consulting Physician: Janelle Virgen Reason for Consult: dementia w/ behavioral disturbances Time Spent in preparation of Discharge (in minutes): 30 Hospital Course - Lab Results Lab Results: Most Recent Lab Values WBC 6.7 K/uL (4.8-10.8) 04/03/18 16:23 RBC 4.43 Mil/uL (3.80-5.20) 04/03/18 16:23 Hgb 13.2 g/dL (12.0-16.0) 04/03/18 16:23 Hct 39.6 % (34.0-47.0) 04/03/18 16:23 MCV 89.2 fl (81.0-99.0) 04/03/18 16:23 MCH 29.7 pg (27.0-31.0) 04/03/18 16:23 MCHC 33.3 g/dL (33.0-37.0) 04/03/18 16:23 RDW 12.7 % (11.5-14.5) 04/03/18 16:23 Plt Count 180 K/uL (130-400) 04/03/18 16:23 MPV 9.2 fl (7.2-11.7) 04/03/18 16:23 Neut % (Auto) 70.2 % (50.0-75.0) 04/03/18 16:23 Lymph % (Auto) 20.8 % (20.0-40.0) 04/03/18 16:23 [place] % (Auto) 7.6 % (0.0-10.0) 04/03/18 16:23 Eos % (Auto) 0.7 % (0.0-4.0) 04/03/18 16:23 Baso % (Auto) 0.7 % (0.0-2.0) 04/03/18 16:23 Neut # (Auto) 4.7 K/uL (1.8-7.0) 04/03/18 16:23 Lymph # (Auto) 1.4 K/uL (1.0-4.3) 04/03/18 16:23 [place] # (Auto) 0.5 K/uL (0.0-0.8) 04/03/18 16:23 Eos # (Auto) 0.0 K/uL (0.0-0.7) 04/03/18 16:23 Baso # (Auto) 0.1 K/uL (0.0-0.2) 04/03/18 16:23 PT 13.1 Seconds (9.8-13.1) 04/03/18 18:03 INR 1.2 04/03/18 18:03 APTT 27.4 Seconds (25.6-37.1) 04/03/18 18:03 Sodium 139 mmol/l (132-148) 04/04/18 15:02 Potassium 3.8 MMOL/L (3.6-5.0) 04/04/18 15:02 Chloride 101 mmol/L (98-107) 04/04/18 15:02 Carbon Dioxide 28 mmol/L (22-30) 04/04/18 15:02 Anion Gap 14 (10-20) 04/04/18 15:02 BUN 17 mg/dl (7-17) 04/04/18 15:02 Creatinine 0.8 mg/dl (0.7-1.2) 04/04/18 15:02 Est GFR ( Amer) > 60 04/04/18 15:02 Est GFR (Non-Af Amer) > 60 04/04/18 15:02 Random Glucose 122 mg/dL (65-105) H 04/04/18 15:02 Calcium 8.3 mg/dL (8.4-10.2) L 04/04/18 15:02 Total Bilirubin 0.6 mg/dl (0.2-1.3) 04/03/18 16:23 AST 45 U/L (14-36) H D 04/03/18 16:23 ALT 37 U/L (9-52) 04/03/18 16:23 Alkaline Phosphatase 65 U/L (38-126) 04/03/18 16:23 Total Protein 9.1 G/DL (6.3-8.2) H 04/03/18 16:23 Albumin 4.8 g/dL (3.5-5.0) 04/03/18 16:23 Globulin 4.3 gm/dL (2.2-3.9) H 04/03/18 16:23 Albumin/Globulin Ratio 1.1 (1.0-2.1) 04/03/18 16:23 Free T4 2.02 ng/dL (0.78-2.19) 04/03/18 18:24 TSH 3rd Generation 1.05 mIU/ML (0.46-4.68) 04/03/18 18:24 Urine Color Yellow (YELLOW) 04/03/18 18:03 Urine Clarity Slighty-cloudy (Clear) 04/03/18 18: Urine pH 6.0 (5.0-8.0) 04/03/18 18: Ur Specific [place] 1.019 (1.003-1.030) 04/03/18 18:03 Urine Protein 30 mg/dL (NEGATIVE) 04/03/18 18:03 Urine Glucose (UA) Neg mg/dL (NEGATIVE) 04/03/18 18: Urine Ketones Negative mg/dL (NEGATIVE) 04/03/18 18: Urine Blood Negative (NEGATIVE) 04/03/18 18:03 Urine Nitrate Negative (NEGATIVE) 04/03/18 18:03 Urine Bilirubin Negative (NEGATIVE) 04/03/18 18: Urine Urobilinogen 0.2-1.0 mg/dL (0.2-1.0) 04/03/18 18:03 Ur Leukocyte Esterase Neg Julisa/uL (Negative) 04/03/18 18:03 Urine RBC (Auto) 2 /hpf (0-3) 04/03/18 18:03 Urine Microscopic WBC 2 /hpf (0-5) 04/03/18 18:03 Ur Squamous Epith Cells < 1 /hpf (0-5) 04/03/18 18:03 Hyaline Casts 11-20 /hpf (0-2) H 04/03/18 18:03 Urine Opiates Screen Negative (NEGATIVE) 04/03/18 18: Urine Methadone Screen Negative (NEGATIVE) 04/03/18 18:03 Ur Barbiturates Screen Negative (NEGATIVE) 04/03/18 18:03 Ur Phencyclidine Scrn Negative (NEGATIVE) 04/03/18 18:03 Ur Amphetamines Screen Negative (NEGATIVE) 04/03/18 18:03 U Benzodiazepines Scrn Negative (NEGATIVE) 04/03/18 18:03 U Oth Cocaine Metabols Negative (NEGATIVE) 04/03/18 18:03 U Cannabinoids Screen Negative (NEGATIVE) 04/03/18 18:03 Alcohol, Quantitative < 10 mg/dl (0-10) 04/03/18 16:23 - Hospital Course Hospital Course: 88 y/o female w/ pmhx of HTN and Alzheimer's admitted due to dehydration and KRISTOPHER for IV fluid hydration. KRISTOPHER resolved w/ hydration. Patient continued to have aggressive episodes. Psych is following; Patient does not have capacity to make medical decisions; patient can not consent for psychiatric admission. Family will need medical POA for psych admission. Patient started on Depakote 250mg PO BID, Haldol 0.5mg PO Q6 PRN/ Haldol 0.5mg IM Q6 PRN (patient refusing PO at times), and Risperidone 0.25mg PO BID. CT head: No acute intracranial abnormalities. No significant findings to account for the clinical presentation. No significant interval change compared to the prior examination(s). Dementia w/ Behavioral Disturbance Hx of Alzheimer's Cont. home meds; Donepezil Hcl 10mg PO QD, Memanatine 25mg PO QD Psych following, appreciate recs: Patient does not have capacity to make medical decisions; patient can not consent for psychiatric admission. Family will need medical POA for psych admission. Discussed case w/ Dr. Wallace; plans to increase Depakote 250mg PO BID. Added Haldol 0.5mg PO Q6 PRN/Haldol 0.5mg IM Q6 PRN (patient refusing PO at times). Risperidone 0.5mg PO at 17:00 Hx of Hypothyroidism hx of Thyroid Cancer s/p thyroidectomy Levothyroxine 125 mcg QD PO TSH and T4 wnl Hx of HTN Cont. HCTZ 12.5mg PO QD, amlodipine 5mg PO QD Plan d/w Dr. Luis De Jesus MD PGY2 Discharge Exam - Head Exam Head Exam: ATRAUMATIC - Eye Exam Eye Exam: EOMI - Respiratory Exam Respiratory Exam: Clear to PA & Lateral, NORMAL BREATHING PATTERN. absent: Wheezes - Cardiovascular Exam Cardiovascular Exam: +S1, +S2 - GI/Abdominal Exam GI & Abdominal Exam: Normal Bowel Sounds, Soft. absent: Tenderness - Neurological Exam Neurological exam: Alert - Psychiatric Exam Psychiatric exam: Normal Affect, Normal Mood Discharge Plan - Discharge Medications Prescriptions: Divalproex [Depakote Sprinkles] 250 mg PO BID #60 capsule Docusate [Colace] 200 mg PO DAILY #30 cap Risperidone [Risperdal M-TAB] 0.5 mg PO DAILY@1700 #30 odt - Follow Up Plan Condition: FAIR Disposition: HOME/ ROUTINE Instructions: Preventing Falls in the Older Adult, Dehydration, Adult (DC), Dementia (DC) Additional Instructions: follow up with primary MD 1 week Referrals: Janelle Virgen MD [Medical Doctor] - Coiln Hlot MD [Family Provider] - <Elenita Smith - Last Filed: 04/08/18 17:53> Provider - Provider Date of Admission: 04/05/18 10:44 Attending physician: She Chino DO Consults: 04/04/18 10:20 Psychiatry Consult Routine Comment: Consulting Provider: Janelle Virgen Consulting Physician: Janelle Virgen Reason for Consult: dementia w/ behavioral disturbances Hospital Course - Lab Results Lab Results: Most Recent Lab Values WBC 6.7 K/uL (4.8-10.8) 04/03/18 16:23 RBC 4.43 Mil/uL (3.80-5.20) 04/03/18 16:23 Hgb 13.2 g/dL (12.0-16.0) 04/03/18 16:23 Hct 39.6 % (34.0-47.0) 04/03/18 16:23 MCV 89.2 fl (81.0-99.0) 04/03/18 16:23 MCH 29.7 pg (27.0-31.0) 04/03/18 16:23 MCHC 33.3 g/dL (33.0-37.0) 04/03/18 16:23 RDW 12.7 % (11.5-14.5) 04/03/18 16:23 Plt Count 180 K/uL (130-400) 04/03/18 16:23 MPV 9.2 fl (7.2-11.7) 04/03/18 16:23 Neut % (Auto) 70.2 % (50.0-75.0) 04/03/18 16:23 Lymph % (Auto) 20.8 % (20.0-40.0) 04/03/18 16:23 [place] % (Auto) 7.6 % (0.0-10.0) 04/03/18 16:23 Eos % (Auto) 0.7 % (0.0-4.0) 04/03/18 16:23 Baso % (Auto) 0.7 % (0.0-2.0) 04/03/18 16:23 Neut # (Auto) 4.7 K/uL (1.8-7.0) 04/03/18 16:23 Lymph # (Auto) 1.4 K/uL (1.0-4.3) 04/03/18 16:23 [place] # (Auto) 0.5 K/uL (0.0-0.8) 04/03/18 16:23 Eos # (Auto) 0.0 K/uL (0.0-0.7) 04/03/18 16: Baso # (Auto) 0.1 K/uL (0.0-0.2) 04/03/18 16:23 PT 13.1 Seconds (9.8-13.1) 04/03/18 18:03 INR 1.2 04/03/18 18:03 APTT 27.4 Seconds (25.6-37.1) 04/03/18 18:03 Sodium 139 mmol/l (132-148) 04/04/18 15:02 Potassium 3.8 MMOL/L (3.6-5.0) 04/04/18 15:02 Chloride 101 mmol/L (98-107) 04/04/18 15:02 Carbon Dioxide 28 mmol/L (22-30) 04/04/18 15:02 Anion Gap 14 (10-20) 04/04/18 15:02 BUN 17 mg/dl (7-17) 04/04/18 15:02 Creatinine 0.8 mg/dl (0.7-1.2) 04/04/18 15:02 Est GFR ( Amer) > 60 04/04/18 15:02 Est GFR (Non-Af Amer) > 60 04/04/18 15:02 Random Glucose 122 mg/dL (65-105) H 04/04/18 15:02 Calcium 8.3 mg/dL (8.4-10.2) L 04/04/18 15:02 Total Bilirubin 0.6 mg/dl (0.2-1.3) 04/03/18 16:23 AST 45 U/L (14-36) H D 04/03/18 16:23 ALT 37 U/L (9-52) 04/03/18 16:23 Alkaline Phosphatase 65 U/L (38-126) 04/03/18 16:23 Total Protein 9.1 G/DL (6.3-8.2) H 04/03/18 16:23 Albumin 4.8 g/dL (3.5-5.0) 04/03/18 16:23 Globulin 4.3 gm/dL (2.2-3.9) H 04/03/18 16:23 Albumin/Globulin Ratio 1.1 (1.0-2.1) 04/03/18 16:23 Free T4 2.02 ng/dL (0.78-2.19) 04/03/18 18:24 TSH 3rd Generation 1.05 mIU/ML (0.46-4.68) 04/03/18 18:24 Urine Color Yellow (YELLOW) 04/03/18 18:03 Urine Clarity Slighty-cloudy (Clear) 04/03/18 18:03 Urine pH 6.0 (5.0-8.0) 04/03/18 18:03 Ur Specific [place] 1.019 (1.003-1.030) 04/03/18 18:03 Urine Protein 30 mg/dL (NEGATIVE) 04/03/18 18:03 Urine Glucose (UA) Neg mg/dL (NEGATIVE) 04/03/18 18:03 Urine Ketones Negative mg/dL (NEGATIVE) 04/03/18 18:03 Urine Blood Negative (NEGATIVE) 04/03/18 18:03 Urine Nitrate Negative (NEGATIVE) 04/03/18 18:03 Urine Bilirubin Negative (NEGATIVE) 04/03/18 18:03 Urine Urobilinogen 0.2-1.0 mg/dL (0.2-1.0) 04/03/18 18:03 Ur Leukocyte Esterase Neg Julisa/uL (Negative) 04/03/18 18:03 Urine RBC (Auto) 2 /hpf (0-3) 04/03/18 18:03 Urine Microscopic WBC 2 /hpf (0-5) 04/03/18 18:03 Ur Squamous Epith Cells < 1 /hpf (0-5) 04/03/18 18:03 Hyaline Casts 11-20 /hpf (0-2) H 04/03/18 18:03 Urine Opiates Screen Negative (NEGATIVE) 04/03/18 18:03 Urine Methadone Screen Negative (NEGATIVE) 04/03/18 18:03 Ur Barbiturates Screen Negative (NEGATIVE) 04/03/18 18:03 Ur Phencyclidine Scrn Negative (NEGATIVE) 04/03/18 18:03 Ur Amphetamines Screen Negative (NEGATIVE) 04/03/18 18:03 U Benzodiazepines Scrn Negative (NEGATIVE) 04/03/18 18:03 U Oth Cocaine Metabols Negative (NEGATIVE) 04/03/18 18:03 U Cannabinoids Screen Negative (NEGATIVE) 04/03/18 18:03 Alcohol, Quantitative < 10 mg/dl (0-10) 04/03/18 16:23 Attending/Attestation - Attestation I have personally seen and examined this patient.: Yes I have fully participated in the care of the patient.: Yes I have reviewed all pertinent clinical information, including history, physical exam and plan: Yes Notes (Text): Alzheimer's Dementia with Behavioral changes HTN Hypothyroidism - Pt's mental status improved , she is now pleasant, cooperative, oriented t place and person, follows commands - Pt's family wants to bring pt home, they said that pt has 24hr care at home - cont Risperdal and Depakote -
== END 2018-04-08 16:30 | disposition home or self-care (01) | DRG 683 ==
LOC: H.ER 13:18 → H.ERHOLD 16:47 → H.MEDSURG1 04-04 01:19 → OBSVTOIN 04-05 10:44
PROVIDERS: ADMIT Student in an Organized Health Care Education/Training Program; ATTEND Student in an Organized Health Care Education/Training Program
DX: N17.9 Acute kidney failure, unspecified (principal); F02.81 Dementia in other diseases classified elsewhere, unspecified severity, with behavioral disturbance; G30.9 Alzheimer's disease, unspecified; E78.00 Pure hypercholesterolemia, unspecified; E86.0 Dehydration; E03.9 Hypothyroidism, unspecified; I10 Essential (primary) hypertension; I25.10 Atherosclerotic heart disease of native coronary artery without angina pectoris; Z79.890 Hormone replacement therapy; Z79.899 Other long term (current) drug therapy; Z85.850 Personal history of malignant neoplasm of thyroid; Z87.891 Personal history of nicotine dependence; Z90.49 Acquired absence of other specified parts of digestive tract; F32.9 Major depressive disorder, single episode, unspecified; M19.90 Unspecified osteoarthritis, unspecified site; R41.82 Altered mental status, unspecified